=== PATIENT | female | born 1950 | race Caucasian/White ===

== ENCOUNTER 2020-02-08 20:10 | Emergency (ER) | payer MEDICARE, MEDICAID, SELFPAY ==
--- NOTE | ~2020-02-08 | CT_ITS ---
EXAMINATION: CT brain wo con DATE: 02/08/2020 20:49 INDICATION: Trauma to the back of the head after fall. Headache. TECHNIQUE: Computed tomography (CT) of the head was performed without intravenous contrast. The dose- length product was 605.33 mGy-cm. The mA was adjusted according to patient size. Iterative reconstruc tion technique was employed. COMPARISON: None FINDINGS: EXAMINATION: CT BRAIN W/O DATE: 02/08/2020 20:49 INDICATION: Trauma to the back of the head. Headache. TECHNIQUE: Computed tomography (CT) of the head was performed without intravenous contrast. The dose- length product was 605.33 mGy-cm. The mA was adjusted according to patient size. Iterative reconstruc tion technique was employed. COMPARISON: No prior studies for comparison. FINDINGS: Normal brain parenchymal volume for age. Normal alvarado-white differentiation. No acute intrac ranial hemorrhage, infarction, mass or mass effect. No ventriculomegaly or midline shift. Midline sagittal images demonstrate a normal corpus callosum, c raniovertebral junction and sella turcica. Basilar cisterns are patent. There is mucosal thickening of the ethmoid and sphenoid sinuses. Mastoids are pneumatized. No depress ed skull fractures. IMPRESSION: 1. No acute intracranial abnormality. 2: Mild sinus disease. IMPRESSION: 1. Reviewed, dictated and finalized at location A. IMPRESSION: 1. No acute intracranial abnormality. 2: Mild sinus disease. IMPRESSION: 1.
[2020-02-08 20:08] VITALS: BP 126/84; PULSE 89; RESP 18; TEMP 36.6; O2SAT 96
--- NOTE | 2020-02-08 20:43 | PC.NURSE ---
Patient being taken to CT.
--- NOTE | 2020-02-08 21:04 | ED.FALL ---
HPI - Fall General Chief Complaint: Fall Stated Complaint: fall/head injury Time Seen by Provider: 02/08/20 20:25 Source: patient Mode of arrival: EMS Limitations: no limitations History of Present Illness HPI Narrative: 69-year-old detention resident with a history of bipolar depression, anxiety, seizure disorder was sent with the complaints of fall. Patient states that she tripped on her walker and fell forward , had headache initially however she states has no pain, No Loc MD complaint: fall Fall from: standing Fall witnessed: yes, by living facility staff Place fall occurred: detention/SNF Loss of consciousness: none Related Data Home Medications Medication Instructions Recorded Confirmed acetaminophen 500 mg PO QID PRN 02/08/20 alprazolam 0.25 mg PO BID 02/08/20 aspirin [Aspirin Low Dose] 81 mg PO DAILY 02/08/20 clozapine 50 mg PO DAILY 02/08/20 docusate sodium 100 mg PO BID PRN 02/08/20 donepezil 10 mg PO HS 02/08/20 ergocalciferol (vitamin D2) 50,000 unit PO 2XW 02/08/20 [Vitamin D2] escitalopram oxalate 20 mg PO DAILY 02/08/20 fenofibrate 160 mg PO DAILY 02/08/20 glucagon HCl [Glucagon (HCl) 02/08/20 Emergency Kit] insulin glargine [Lantus Solostar 38 unit SUBCUT HS 02/08/20 U-100 Insulin] insulin lispro 10 unit SUBCUT TID 02/08/20 lamotrigine 200 mg PO DAILY 02/08/20 lithium carbonate 300 mg PO BID 02/08/20 meloxicam 7.5 mg PO DAILY 02/08/20 memantine 10 mg PO BID 02/08/20 pen needle, diabetic, safety 02/08/20 02/08/20 [Novofine Autocover] tramadol 50 mg PO Q6H PRN 02/08/20 trazodone 150 mg PO HS 02/08/20 Allergies Allergy/AdvReac Type Severity Reaction Status Date / Time haloperidol [From Haldol] Allergy Unknown Verified 02/08/20 20:16 Review of Systems Review of Systems: All systems reviewed & are unremarkable except as noted in HPI and below Constitutional: Constitutional: Reports no additional constitutional complaints Eyes: Eyes: Reports as per HPI Cardiovascular: Cardiovascular: Reports no additional cardiovascular complaints Respiratory: Respiratory: Reports no additional respiratory complaints Musculoskeletal: Musculoskeletal: Reports no additional musculoskeletal complaints Exam Narrative: Exam Narrative: GENERAL: Well-appearing, well-nourished, and in no acute distress. HEAD: Normocephalic, atraumatic. EYES: PERRLA and EOMI. ENT: Nares clear, no rhinorrhea or epistaxis. Mucous membranes moist. NECK: Supple. CHEST: Clear to auscultation. No respiratory distress. HEART: Regular rate and rhythm. No murmur heard. Normal peripheral pulses. ABDOMEN: Soft, nontender, nondistended, normal active bowel sounds. EXTREMITIES: Normal range of motion. No edema. SKIN: Warm, dry, no rash. NEURO: No focal deficits. Alert and oriented x3. PSYCH: Normal mood and affect. Course Vital Signs Vital signs: Vital Signs Temperature 36.6 C 02/08/20 20:08 Pulse Rate 89 02/08/20 20:08 Respiratory Rate 18 02/08/20 20:08 Blood Pressure 126/84 02/08/20 20:08 Pulse Oximetry 96 02/08/20 20:08 Temperature 36.6 C 02/08/20 20:08 Pulse Rate 89 02/08/20 20:08 Respiratory Rate 18 02/08/20 20:08 Blood Pressure 126/84 02/08/20 20:08 Pulse Oximetry 96 02/08/20 20:08 MDM - Fall MDM Narrative Medical decision making narrative: Given history of fall at the detention with no loss of consciousness with the age being under consideration and patient being on aspirin will do a CAT scan of the head. The CT of the head is normal discharge the patient home with headache still instructions. Imaging Data Radiologist's impression: ITS Impressions Head CT 02/08/20 20:55 IMPRESSION: 1. No acute intracranial abnormality. 2: Mild sinus disease. IMPRESSION: 1. Discharge Plan Discharge Clinical Impression: Minor head injury Patient Disposition: NH Longterm/Asst Living Condition: Stable Instructions: A
--- NOTE | 2020-02-08 21:08 | PC.NURSE ---
Called [facility] to request transport. ETA [id number]
[2020-02-08 21:40] VITALS: BP 119/69; PULSE 91; RESP 18; O2SAT 96
== END 2020-02-08 21:42 ==
PROVIDERS: Emergency Provider Family Medicine
DX: S09.90XA Unspecified injury of head, initial encounter (principal); F31.9 Bipolar disorder, unspecified; F41.9 Anxiety disorder, unspecified; Z79.4 Long term (current) use of insulin; Z79.82 Long term (current) use of aspirin; J32.9 Chronic sinusitis, unspecified; W18.09XA Striking against other object with subsequent fall, initial encounter
CPT/HCPCS: 70450; 99284

== ENCOUNTER 2021-02-02 18:23 | Emergency (ER) | payer MEDICARE, MEDICAID, SELFPAY ==
[2021-02-02] VITALS (9 sets, daily range): BP systolic 99–120; BP diastolic 54–92; PULSE 73–82; RESP 14–21; TEMP 36.7; O2SAT 88–99
--- NOTE | ~2021-02-02 | XR_ITS ---
XR chest 1V portable DATE: 02/02/2021 19:58 INDICATION: Transient alteration of awareness TECHNIQUE: Portable supine AP chest on 02/02/2021 at 1952 hours COMPARISON: None FINDINGS: Cardiomegaly. Aortic arch calcification. There is volume loss of the left lung with evidence of left lower lobe infiltrate and/atelectasis, mi ld leftward shift of the heart mediastinum. The right lung appears clear. No right pleural effusion. Left costophrenic angle is not well defined. No evidence of pneumothorax. Calcified hilar and mediastinal nodes consistent with old granulomatous disease. IMPRESSION: Left lower lung infiltrate and/atelectasis, left lung volume loss Cardiomegaly Reviewed, dictated and finalized at location A.
--- NOTE | ~2021-02-02 | CT_ITS ---
EXAMINATION: CT diagnostic chest wo con DATE: 02/02/2021 23:17 INDICATION: Hypoxia. Leftward shift of heart and mediastinum TECHNIQUE: Computed tomography (CT) of the chest was performed without intravenous contrast. Automate d exposure control and iterative reconstruction technique were employed. Exam dose: 202.19 mGy-cm to sam exam DLP. COMPARISON: 02/02/2021 portable AP chest FINDINGS: Thyroid goiter and calcification. No thoracic aortic aneurysm is evident. Cardiomegaly. No pericardial effusion. No pleural effusion. Calcified left lower lobe pulmonary granuloma and calcified right paratracheal, pretracheal and left hilar nodes consistent with old pulmonary granulomatous disease. No cardiac or mediastinal shift is evident; the appearance of rotation on the portable AP chest of is due to patient rotation. No pulmonary consolidation or pulmonary mass lesion is evident. There is minimal atelectasis. 3.5 cm upper pole right renal cyst. Included skeletal structures are unremarkable. IMPRESSION: Cardiomegaly Old pulmonary granulomatous disease Reviewed, dictated and finalized at Location A. Reviewed, dictated and finalized at location A.
[2021-02-02 18:33] LABS: Glucose Point of Care 282 mg/dl (65-105)
--- NOTE | 2021-02-02 19:30 | PC.NURSE ---
Assumed care of pt at this time, report taken from Abraham LAM. Pt upright on stretcher, oriented to person, time, and place. Pt 99% on 3L NC. Denies pain at this time.
--- NOTE | 2021-02-02 19:48 | ECG_ITS ---
Measurements Intervals [place] Rate: 72 P: 66 MA: 204 QRS: 116 QRSD: 113 T: -18 QT: 407 QTc: 447 Interpretive Statements SINUS RHYTHM RIGHT AXIS DEVIATION INCOMPLETE RIGHT BUNDLE BRANCH BLOCK ANTEROSEPTAL INFARCT, AGE INDETERMINATE BORDERLINE ST-T WAVE ABNORMALITY- ANTEROLAT/INF LEADS ABNORMAL ECG Electronically Signed On 02-02-2021 21:18:56 CDT by Noah Vital D.O.
--- NOTE | 2021-02-02 19:51 | ED.GENADULT ---
HPI - General Adult General Chief complaint: Altered Mental Status Stated complaint: ams Time Seen by Provider: 02/02/21 19:13 Source: EMS, RN notes reviewed and old records reviewed History of Present Illness HPI narrative: Patient presents with altered mental status from nursing facility. EMS noted a glucose of 40 they have dextrose on arrival patient's mental status returned to her baseline she was hypoxic and required nasal cannula. Patient does report pain in her suprapubic area. Related Data Home Medications Medication Instructions Recorded Confirmed acetaminophen 500 mg PO QID PRN 02/08/20 alprazolam 0.25 mg PO BID 02/08/20 aspirin [Aspirin Low Dose] 81 mg PO DAILY 02/08/20 clozapine 50 mg PO DAILY 02/08/20 docusate sodium 100 mg PO BID PRN 02/08/20 donepezil 10 mg PO HS 02/08/20 ergocalciferol (vitamin D2) 50,000 unit PO 2XW 02/08/20 [Vitamin D2] escitalopram oxalate 20 mg PO DAILY 02/08/20 fenofibrate 160 mg PO DAILY 02/08/20 glucagon HCl [Glucagon (HCl) 02/08/20 Emergency Kit] insulin glargine [Lantus Solostar 38 unit SUBCUT HS 02/08/20 U-100 Insulin] insulin lispro 10 unit SUBCUT TID 02/08/20 lamotrigine 200 mg PO DAILY 02/08/20 lithium carbonate 300 mg PO BID 02/08/20 meloxicam 7.5 mg PO DAILY 02/08/20 memantine 10 mg PO BID 02/08/20 pen needle, diabetic, safety 02/08/20 02/08/20 [Novofine Autocover] tramadol 50 mg PO Q6H PRN 02/08/20 trazodone 150 mg PO HS 02/08/20 Allergies Allergy/AdvReac Type Severity Reaction Status Date / Time haloperidol [From Haldol] Allergy Unknown Verified 02/08/20 20:16 Review of Systems Review of Systems: ROS unobtainable: Yes unobtainable due to mental status Exam Narrative: GENERAL: Disheveled in no acute distress. HEAD: Normocephalic, atraumatic. EYES: PERRLA and EOMI. ENT: Nares clear, no rhinorrhea or epistaxis. Mucous membranes moist. NECK: Supple. No masses. No JVD CHEST: Clear to auscultation. No respiratory distress. Slightly diminished in all lung field HEART: Regular rate and rhythm. No murmur heard. Normal peripheral pulses. ABDOMEN: Soft, nontender, nondistended, normal active bowel sounds. EXTREMITIES: Normal range of motion. No edema. SKIN: Warm, dry, no rash. NEURO: No focal deficits. Alert and oriented x3. PSYCH: Normal mood and affect. Course Reevaluation(s) Reevaluation #1: Patient resting comfortably continuous neb completed patient continued to have small oxygen requirement. We have discussed previously with the nursing facility patient already has oxygen as needed and has previously received breathing treatments at that facility. Nursing facility felt they could continue treatment as needed given longstanding history of COPD suspect hypoxia is related to COPD. All results and plan reviewed with family and they were comfortable with the outpatient plan. Date: 02/03/21 Time: 02:00 Vital Signs Vital signs: Vital Signs Temperature 36.7 C 02/02/21 18:30 Pulse Rate 74 02/02/21 18:30 Respiratory Rate 14 02/02/21 18:30 Blood Pressure 107/80 02/02/21 18:30 Pulse Oximetry 99 02/02/21 18:30 Temperature 36.7 C 02/02/21 18:30 Pulse Rate 95 02/03/21 02:01 Respiratory Rate 21 H 02/03/21 02:01 Blood Pressure 118/64 02/03/21 02:01 Pulse Oximetry 93 02/03/21 02:05 Medical Decision Making [facility] Narrative Medical decision making narrative: H&P as above, vs with hypoxia, pt looks clinically well, exam reassuring, labs initially with hypoglycemia but resolved, img without acute process, additional labs/img considered.family did present to the ER and reported patient appeared to be at her baseline mental status. Patient did have hypoxia while here in the ER. Patient is given DuoNeb therapies. She continued to have a 2 L oxygen requirement however she has a longstanding history of COPD and has a standing order for as needed oxygen at the nursing facility. Altered mental status was likely
[2021-02-02] MEDS: SODIUM CHLORIDE 0.9% IV 500 ML 999 ML IV CONT (20:22)
[2021-02-02 21:04] LABS: Basophils Absolute Auto 0.1 K/mm3 (0.0-0.1); Basophils Percent Auto 0.6 % (0.2-1.2); Eosinophils Absolute Auto 0.2 K/mm3 (0-0.3); Eosinophils Percent Auto 2.5 % (0-4.4); Hematocrit 42.4 % (37.0-47.0); Hemoglobin 13.1 g/dL (12.0-15.0); Immature Granulocyte Absolute 0.04 K/mm3 (0.00-0.031); Immature Granulocyte Percent A 0.5 % (0-0.5); Lymphocytes Absolute Auto 0.97 K/mm3 (0.9-3.2); Lymphocytes Percent Auto 12.3 % (18.3-44.2); Mean Corpuscular HGB Conc 30.9 g/dl (32-36); Mean Corpuscular Hemoglobin 31.9 pg (26-34); Mean Corpuscular Volume 103.2 fl (80-100); Mean Platelet Volume 10.9 fl (7.4-10.4); Monocytes Absolute Auto 0.6 K/mm3 (0.1-0.6); Monocytes Percent Auto 7.5 % (2.6-8.5); Neutrophils Absolute Auto 6.1 K/mm3 (1.3-6.7); Neutrophils Percent Auto 76.6 % (45.5-73.1); Platelet Count Result 269 k/mm3 (150-375); Red Blood Count 4.11 M/mm3 (4.2-5.4); Red Cell Distribution Width 13.1 % (11.5-14.5); White Blood Count 7.9 K/mm3 (4.5-10.0)
--- NOTE | 2021-02-02 21:11 | PC.NURSE ---
Daughter at bedside. Updated on POC.
[2021-02-02 21:14] LABS: Partial Thromboplastin Time 31.5 SECONDS (22.3-36.8); Prothrombin Time 12.7 Seconds (11.1-14.7)
[2021-02-02 21:20] LABS: Alanine Aminotransferase 21 U/L (4-35); Albumin Level 3.6 g/dL (3.5-5.1); Alkaline Phosphatase 46 U/L (38-126); Anion Gap 4 mmol/L (8-16); Aspartate Amino Transferase 33 U/L (14-36); Bilirubin,Total 0.4 mg/dL (0.2-1.3); Blood Urea Nitrogen 38 mg/dL (7-17); Calcium 9.5 mg/dL (8.4-10.2); Carbon Dioxide 29 mmol/L (22-30); Chloride 100 mmol/L (98-107); Estimated Glomerular Filt Rate 37; Glucose 68 mg/dL (65-110); Potassium 3.9 mmol/L (3.4-5.0); Sodium 133 mmol/L (137-145)
[2021-02-02 21:31] LABS: Troponin I < 0.012 ng/mL (0.000-0.034)
--- NOTE | 2021-02-02 21:40 | PC.NURSE ---
Received call from Rolanda romero [place]. Updated on pts POC. Will call back with further updates.
[2021-02-02 22:20] LABS: Add Urine Microscopic? NO; Appearance Urine Clear (Clear); Bilirubin Urine Negative (Negative); Blood Urine Negative (Negative); Color Urine Yellow (Yellow); Glucose Urine UA Negative (Negative); Ketones Urine Negative (Negative); Leukocyte Esterase Ur Negative LEU/UL (Negative); Nitrate Urine Negative (Negative); Protein Urine Negative (Negative); Specific Grav Ur 1.015 (1.001-1.035); Urobilinogen Urine 0.2 mg/dL (<2.0); pH Urine 6.5 (5.0-9.0)
[2021-02-02] MEDS: IPRATROPIUM BR 0.02% INH SOLN 0.5 MG/2.5 ML VIAL INHALATION (23:26)
[2021-02-02] MEDS: ALBUTEROL SULFATE NEB 2.5 MG/0.5 ML INH 5 MG INHALATION (23:26)
[2021-02-03 00:11] VITALS: BP 114/70; PULSE 86; RESP 17; O2SAT 92
[2021-02-03 00:16] LABS: Glucose Point of Care 255 mg/dl (65-105)
--- NOTE | 2021-02-03 00:18 | PC.NURSE ---
Attempted to call [facility] to give update. Received busy signal, will call back.
[2021-02-03] MEDS: ALBUTEROL SULFATE NEB 2.5 MG/0.5 ML INH 20 MG INHALATION (00:40)
[2021-02-03] MEDS: IPRATROPIUM BR 0.02% INH SOLN 0.5 MG/2.5 ML VIAL 2 MG INHALATION (00:40)
[2021-02-03 00:41] VITALS: PULSE 83; RESP 20
[2021-02-03] MEDS: methylPREDNISolone SOD SUCC 125 MG VIAL IV PUSH (01:03)
[2021-02-03 01:28] LABS: Troponin I < 0.012 ng/mL (0.000-0.034)
--- NOTE | 2021-02-03 01:40 | PC.NURSE ---
Spoke with Joss at [facility] to give update.
[2021-02-03 01:57] VITALS: PULSE 93; RESP 21
[2021-02-03 02:01] VITALS: BP 118/64; PULSE 95; RESP 21; O2SAT 92
[2021-02-03] MEDS: ACETAMINOPHEN 500 MG TABLET 1000 MG PO (02:01)
[2021-02-03 02:05] VITALS: O2SAT 93
== END 2021-02-03 02:43 ==
PROVIDERS: Emergency Provider Emergency Medicine
DX: J44.1 Chronic obstructive pulmonary disease with (acute) exacerbation (principal); E11.649 Type 2 diabetes mellitus with hypoglycemia without coma; F03.90 Unspecified dementia, unspecified severity, without behavioral disturbance, psychotic disturbance, mood disturbance, and anxiety; I25.10 Atherosclerotic heart disease of native coronary artery without angina pectoris; E78.00 Pure hypercholesterolemia, unspecified; K21.9 Gastro-esophageal reflux disease without esophagitis; F31.9 Bipolar disorder, unspecified; F41.9 Anxiety disorder, unspecified; Z79.4 Long term (current) use of insulin; I51.7 Cardiomegaly; R94.31 Abnormal electrocardiogram [ECG] [EKG]; I45.10 Unspecified right bundle-branch block
CPT/HCPCS: 36415; 51701; 71045; 71250; 80053; 81003; 82948; 84484; 85025; 85610; 85730; 93005; 94640; 96374; 99284; A9270; J2930; J7040

== ENCOUNTER 2021-09-29 09:01 | Inpatient (IN) | payer MEDICARE, MEDICAID, SELFPAY ==
[2021-09-29] VITALS (16 sets, daily range): BP systolic 87–125; BP diastolic 55–97; PULSE 76–86; RESP 13–20; TEMP 36.3–36.4; O2SAT 92–100; BMI 32.6
--- NOTE | ~2021-09-29 | XR_ITS ---
EXAMINATION: XR knee LT 3V DATE: 09/29/2021 10:21 INDICATION: Left knee pain. Fall. TECHNIQUE: 3 views of left knee were obtained. COMPARISON: None. FINDINGS: Bone alignment is normal. No fracture. There is mild osteoarthritis of medial and lateral c ompartments characterized by tiny osteophytes. No joint space narrowing. No knee joint effusion. IMPRESSION: 1. Mild left knee osteoarthritis. Reviewed, dictated and finalized at location B.
--- NOTE | ~2021-09-29 | CT_ITS ---
EXAMINATION: CT cervical spine wo con DATE: 09/29/2021 10:35 INDICATION: Syncopal episode with fall and possible head injury. TECHNIQUE: Computed tomography (CT) of the cervical spine was performed without intravenous contrast. Automated exposure control and iterative reconstruction technique were employed. The dose-length pro duct was 453.96 mGy-cm. COMPARISON: None FINDINGS: Mild reversal of the normal cervical lordosis. One half and 2 mm anterolisthesis is evident on T1. Ve rtebral body heights are normal. No fracture. Moderate disc height loss at C5-C6. Mild disc height lo ss at C6-C7. There is severe uncovertebral osteoarthritis the intervening to mild neural foraminal st enosis bilaterally at C5-C6 and on the right at C6-C7. Moderate cervical facet osteoarthritis contrib uting to additional mild neural foraminal stenosis on the left at C2-C3 and bilaterally at C7-T1. No significant narrowing of the osseous central canal. Multinodular goiter. Cervical soft tissues are ot herwise unremarkable. Visualized portion of the airway and apices of lungs are clear. IMPRESSION: 1. Mild to moderate cervical spondylosis. No acute osseous abnormality. 2. Multinodular goiter. Reviewed, dictated and finalized at location A.
--- NOTE | ~2021-09-29 | CT_ITS ---
EXAMINATION: CTA chest PE protocol DATE: 09/29/2021 12:57 INDICATION: Hypoxia. TECHNIQUE: Computed tomography angiography (CTA) of the chest was performed with 100 mL Omnipaque-350 intravenous contrast timed to evaluate the pulmonary arteries. Coronal maximum intensity projection 3D-reconstructions were created by the technologist. Automated exposure control and iterative reconst ruction technique were employed. The dose-length product was 674.70 mGy-cm. COMPARISON: Chest CT 02/02/2021 FINDINGS: The lungs demonstrate mild atelectasis bilaterally. No pleural effusion. Cardiomegaly is no arsh. No pericardial effusion. The central pulmonary arteries are enlarged, consistent with pulmonary arterial hypertension. There are pulmonary emboli in basilar right lower lobe and in right middle lob e. An embolus in right middle lobe is along the vessel wall, and an embolus in right lower lobe is we blike, which suggests at least some of the emboli could be chronic. There is a 3.7 cm mass in right a drenal gland measuring low-attenuation without change, consistent with an adenoma. There is a multino dular goiter extending into the superior mediastinum without change. There is mild thoracic spondylos is. IMPRESSION: 1. Pulmonary emboli involving right lower lobe and right middle lobe. I called this result to Dr. Wilver johns. Reviewed, dictated and finalized at location B. IMPRESSION: 1. Pulmonary emboli involving right lower lobe and right middle lobe. I called this result to Dr. Tracy.
--- NOTE | ~2021-09-29 | US_ITS ---
EXAMINATION: US carotid duplex BI DATE: 09/30/2021 13:51 INDICATION: Syncope. TECHNIQUE: Grayscale, color Doppler, and pulsed Doppler images of the cervical carotid arteries were obtained. The degree of vessel stenosis is placed in one of the following categories: normal, <50%, 5 0-69%, >=70% but less than near-occlusion, near-occlusion, or total occlusion. Note that percent sten osis relative to normal distal artery lumen diameter is indirectly measured from velocity measurement s as described by Edilson, et al. Radiology 2003; 229:[id number]. COMPARISON: None. FINDINGS: RIGHT: The right common carotid artery (CCA) peak systolic velocity (PSV) is 108 cm/s. The right internal ca rotid artery (ICA) PSV is 58 cm/s. The right ICA end-diastolic velocity (EDV) is 19 cm/s. The right I CA/CCA PSV ratio is 0.5. Grayscale and color Doppler images yield an estimate of <50% diameter reduct ion from plaque in the ICA. There is antegrade flow in the right vertebral artery. LEFT: The left CCA PSV is 88 cm/s. The left ICA PSV is 104 cm/s. The left ICA EDV is 21 cm/s. The left ICA/ CCA PSV ratio is 1.2. Grayscale and color Doppler images yield an estimate of <50% diameter reduction from plaque in the ICA. There is antegrade flow in the left vertebral artery. IMPRESSION: 1. <50% stenosis in the right internal carotid artery. 2. <50% stenosis in the left internal carotid artery. Reviewed, dictated and finalized at location B.
--- NOTE | ~2021-09-29 | CT_ITS ---
EXAMINATION: CT brain wo con DATE: 09/29/2021 10:35 INDICATION: Syncopal episode with fall presenting with persistent lethargy TECHNIQUE: Computed tomography (CT) of the head was performed without intravenous contrast. Sagittal and coronal reconstructions were performed. The mA was adjusted according to patient size. Iterative reconstruction technique was employed. The dose-length product was 605.33 mGy-cm. COMPARISON: head CT dated 02/08/2020 FINDINGS: No fracture. No acute intracranial hemorrhage, acute infarction or abnormal extra axial fluid collect ion. Symmetric prominence of the sulci consistent with mild age-appropriate diffuse cerebral volume l oss. Ventricles are normal and symmetric. No mass/mass effect. Mild mucosal thickening the bilateral ethmoid sinuses. The orbits and mastoid air cells are normal. IMPRESSION: 1. No fracture or acute intracranial process. Reviewed, dictated and finalized at location A.
--- NOTE | ~2021-09-29 | XR_ITS ---
EXAMINATION: XR chest 1V portable DATE: 09/29/2021 10:21 INDICATION: Shortness of breath. TECHNIQUE: A single frontal view of the chest was obtained. COMPARISON: Chest single view 02/02/2021, chest CT 02/02/2021 FINDINGS: There is no pneumonia, pleural effusion, or pneumothorax. Cardiomegaly is noted. There is a prominent left paracardial fat pad. Calcified mediastinal lymph nodes are consistent with old granul omatous disease. IMPRESSION: 1. Cardiomegaly. Reviewed, dictated and finalized at location B. IMPRESSION: 1. Cardiomegaly.
--- NOTE | ~2021-09-29 | US_ITS ---
EXAMINATION: US venous doppler [facility] DATE: 09/29/2021 16:15 INDICATION: Pulmonary emboli TECHNIQUE: Grayscale ultrasound images without and with compression and Doppler ultrasound images of the bilateral lower extremity veins were obtained. COMPARISON: None. FINDINGS: The visualized portions of right common femoral vein, profunda (deep) femoral vein, femoral vein, pop liteal vein, posterior tibial veins, peroneal veins, lesser saphenous vein and greater saphenous vein outflow are patent. The visualized portions of left common femoral vein, profunda femoral vein, femoral vein, popliteal v ein, posterior tibial veins, peroneal veins, lesser saphenous vein and greater saphenous vein outflow are patent. IMPRESSION: 1. No deep venous thrombosis in either lower limb. Reviewed, dictated and finalized at location A.
--- NOTE | 2021-09-29 09:14 | ECG_ITS ---
Measurements Intervals [place] Rate: 84 P: 66 MD: 207 QRS: 125 QRSD: 111 T: 0 QT: 391 QTc: 464 Interpretive Statements SINUS RHYTHM LEFT ATRIAL ENLARGEMENT [-0.15mV P-WAVE IN V1/V2] INCOMPLETE RIGHT BUNDLE BRANCH BLOCK [90+ ms QRS DURATION, TERMINAL R IN V1/V2, 40+ ms S IN I/aVL/V4/V5/V6] ANTEROSEPTAL MYOCARDIAL INFARCTION , OF INDETERMINATE AGE [40+ ms Q WAVE IN V1-V4] NONSPECIFIC ST ABNORMALITY ABNORMAL ECG COMPARED TO ECG 02/02/2021 20:20:58 NO SIGNIFICANT CHANGES YET Electronically Signed On 09-29-2021 16:52:38 CDT by Melquiades Mayer M.D.
[2021-09-29 09:18] LABS: Glucose Point of Care 386 mg/dl (65-105)
[2021-09-29 09:31] LABS: Basophils Percent Auto 0.6 % (0.2-1.2); Eosinophils Absolute Auto 0.1 K/mm3 (0-0.3); Eosinophils Percent Auto 2.4 % (0-4.4); Hematocrit 42.1 % (37.0-47.0); Hemoglobin 12.9 g/dL (12.0-15.0); Immature Granulocyte Absolute 0.01 K/mm3 (0.00-0.031); Immature Granulocyte Percent A 0.2 % (0-0.5); Lymphocytes Absolute Auto 0.62 K/mm3 (0.9-3.2); Lymphocytes Percent Auto 12.5 % (18.3-44.2); Mean Corpuscular HGB Conc 30.6 g/dl (32-36); Mean Corpuscular Hemoglobin 31.5 pg (26-34); Mean Corpuscular Volume 102.9 fl (80-100); Mean Platelet Volume 11.7 fl (7.4-10.4); Monocytes Absolute Auto 0.2 K/mm3 (0.1-0.6); Monocytes Percent Auto 4.8 % (2.6-8.5); Neutrophils Percent Auto 79.5 % (45.5-73.1); Platelet Count Result 214 k/mm3 (150-375); Red Blood Count 4.09 M/mm3 (4.2-5.4); Red Cell Distribution Width 14.3 % (11.5-14.5)
[2021-09-29 09:42] LABS: Alanine Aminotransferase 22 U/L (4-35); Albumin Level 3.8 g/dL (3.5-5.1); Alkaline Phosphatase 63 U/L (38-126); Anion Gap 7 mmol/L (8-16); Aspartate Amino Transferase 33 U/L (14-36); Bilirubin,Total 0.4 mg/dL (0.2-1.3); Blood Urea Nitrogen 38 mg/dL (7-17); Calcium 8.2 mg/dL (8.4-10.2); Carbon Dioxide 27 mmol/L (22-30); Chloride 102 mmol/L (98-107); Estimated CRCL calculation 39 ml/min; Estimated Glomerular Filt Rate 45; Glucose 405 mg/dL (65-110); Potassium 4.2 mmol/L (3.4-5.0); Sodium 136 mmol/L (137-145)
--- NOTE | 2021-09-29 10:22 | ED.GENADULT ---
HPI - General Adult General Chief complaint: Syncope Stated complaint: syncopal Time Seen by Provider: 09/29/21 09:23 Source: patient, EMS and RN notes reviewed Mode of arrival: EMS Limitations: altered mental status History of Present Illness HPI narrative: Patient is 70 years old white female came by ambulance from snf because of a fall and hypoxia. Patient finished her breakfast, walking down the [place] with her walker fell into the medical cart, and witnessed, the nurse ran to the patient who was cyanotic in the lips and hands responsive but lethargic and may be slightly confused. Patient normally not on oxygen, her saturation was 78% on room air. Patient normally have protruded tongue. History of COPD, seizure, Related Data Home Medications Medication Instructions Recorded Confirmed acetaminophen 500 mg PO QID PRN 02/08/20 alprazolam 0.25 mg PO BID 02/08/20 aspirin [Aspirin Low Dose] 81 mg PO DAILY 02/08/20 clozapine 50 mg PO DAILY 02/08/20 docusate sodium 100 mg PO BID PRN 02/08/20 donepezil 10 mg PO HS 02/08/20 ergocalciferol (vitamin D2) 50,000 unit PO 2XW 02/08/20 [Vitamin D2] escitalopram oxalate 20 mg PO DAILY 02/08/20 fenofibrate 160 mg PO DAILY 02/08/20 glucagon HCl [Glucagon (HCl) 02/08/20 Emergency Kit] insulin glargine [Lantus Solostar 38 unit SUBCUT HS 02/08/20 U-100 Insulin] insulin lispro 10 unit SUBCUT TID 02/08/20 lamotrigine 200 mg PO DAILY 02/08/20 lithium carbonate 300 mg PO BID 02/08/20 meloxicam 7.5 mg PO DAILY 02/08/20 memantine 10 mg PO BID 02/08/20 pen needle, diabetic, safety 02/08/20 02/08/20 [Novofine Autocover] tramadol 50 mg PO Q6H PRN 02/08/20 trazodone 150 mg PO HS 02/08/20 Allergies Allergy/AdvReac Type Severity Reaction Status Date / Time haloperidol [From Haldol] Allergy Unknown Verified 02/08/20 20:16 Review of Systems Review of Systems: ROS unobtainable: Yes unobtainable due to mental status Exam Narrative: General appearance: Well-developed, well-nourished, sleeping, tongue protruding out of the mouth to the right side, arousable Skin: Normal color Head: Normocephalic, nontraumatic Eyes: Clear conjunctiva ENT: Oropharynx normal, ears normal, nose normal Neck: Supple, nontender Chest and respiratory: Airway patent, no respiratory distress, no accessory muscle use Heart: Regular rate/rhythm Abdomen: Soft, nontender, no organomegaly, quiet bowel sounds Vascular: Normal peripheral pulses, normal capillary refill. Musculoskeletal: Normal range of motion, nontender back Neurologic: Alert and oriented to her name and the year only otherwise does not know her age or the name of the president. Keeps telling me that she cannot think Course Course Emergency Course: Work-up showed hypoxia, uncontrolled hyperglycemia. Seizure, CVA is suspected. Patient still oriented to her name and the year on the otherwise disoriented and cannot think which could be postictal or CVA. Normal D-dimer, CTA pulmonary showed peripheral pulmonary embolism which is high likely chronic. Vital Signs Vital signs: Vital Signs Temperature 36.4 C 09/29/21 08:52 Pulse Rate 83 09/29/21 08:52 Respiratory Rate 16 09/29/21 08:52 Blood Pressure 121/75 09/29/21 08:52 Pulse Oximetry 92 09/29/21 08:52 Temperature 36.4 C 09/29/21 08:52 Pulse Rate 76 09/29/21 13:17 Respiratory Rate 13 09/29/21 13:17 Blood Pressure 109/66 09/29/21 13:17 Pulse Oximetry 98 09/29/21 13:17 Medical Decision Making Differential Diagnosis Differential Diagnosis: Pulmonary embolism, head injury, COPD exacerbation, lithium overdose, orthostatic hypotension, Vital Signs Vital Signs:
[2021-09-29 10:26] LABS: Alveolar/Arterial O2 Gradient 172.2 mmHg; Base Excess ABG -1.5 mEq/l (+/-2.0); Fractional Inspired Oxygen 40 %; HCO3 ABG 24.2 mEq/l (22.0-26.0); Oxygen Content ABG 16.6 %vol (16.0-22.0); Oxygen Saturation ABG 90.7 % (95.0-100.0); PCO2 ABG 44.4 mmHg (35.0-45.0); PO2 ABG 61.9 mmHg (80.0-100.0); PO2 FiO2 Ratio Arterial Blood 1.55 %; Total Hemoglobin 13.1 g/dL (12.0-18.0); pH ABG 7.354 (7.350-7.450)
[2021-09-29 10:27] LABS: Device NASAL CANNULA; Modified Allen's Test Pass; Site Drawn RIGHT RADIAL
[2021-09-29 11:17] LABS: Lithium 0.8 mmol/L (0.6-1.2)
[2021-09-29] MEDS: ALBUTEROL SULFATE NEB 2.5 MG/0.5 ML INH 5 MG INHALATION ×3 (11:41→20:44)
[2021-09-29] MEDS: IPRATROPIUM BR 0.02% INH SOLN 0.5 MG/2.5 ML VIAL INHALATION ×3 (11:41→20:44)
[2021-09-29] MEDS: SODIUM CHLORIDE 0.9% IV 1,000 ML 999 ML IV CONT (12:43)
[2021-09-29] MEDS: ENOXAPARIN 80 MG/0.8 ML SYRINGE SUB-Q (13:19)
[2021-09-29 13:34] LABS: Troponin I 0.013 ng/mL (0.000-0.034)
--- NOTE | 2021-09-29 13:45 | PM.IMHP ---
H&P: HPI History of Present Illness Date/Time: 09/29/21 13:45 Chief Complaint: Syncope. Narrative: This is a 70-year-old female with insulin-dependent diabetes, bipolar disorder, schizoaffective disorder, COPD, and asthma who presented to the emergency department via EMS from [facility] for evaluation after a witnessed syncopal episode. After eating lunch, she stood up from the table and took a few steps at which time she lost consciousness, falling into the nurses cart. She was out for only a brief period of time and was perhaps a bit confused when coming to and initially she did not recall experiencing antecedent symptoms however at the time my evaluation she remembers feeling very weak. The responding nurse noted cyanosis about her finger and lips and she was found to have an SpO2 of 78% on room air and she was brought to the ER on 5 L nasal cannula. Vital signs were otherwise stable on arrival. CT of the head and neck as well as a left knee x-ray (patient reported mild knee pain after the fall) were negative for acute findings. Chest CTA showed enlarged pulmonary arteries consistent with pulmonary arterial hypertension and pulmonary emboli in the basilar right lower lobe and right middle lobe, with the embolism in the right middle lobe giving the appearance that it could be chronic. She is being admitted in this setting for further observation and workup. Currently she is resting comfortably and has no complaints. She is not on chronic oxygen and is on no inhalers though she endorses chronic dyspnea with exertion. She denies sinus congestion, sore throat, and cough. No chest pain, pleuritic pain, or palpitations. No known sick contacts. Review of Systems Review of Systems: Twelve systems were reviewed. No fever, chills, or sweats. No recent change in medication that she can recall. No recent illness. No sick contacts. She denies lower extremity edema. It does not sound as though she is very active and in fact she tells me that her children but her a wheelchair for her 71th birthday tomorrow. I asked her why she had issues with walking and she did not have a really good answer for that but it sounds like she is unsteady on her feet. She denies that is related to neuropathy. She believes her diabetes is fairly well controlled however it is not unusual for her to have a glucose around 200 on occasion. Except as documented, all other systems were reviewed and are negative. [facility] Past Medical History Medical History (Updated 09/29/21 @ 22:52 by Lynn Jovel PA-C) Anxiety Bipolar disorder Chronic kidney disease, stage 3 Chronic obstructive pulmonary disease Dementia Depression Gastroesophageal reflux disease Insulin dependent diabetes mellitus Multinodular goiter Stable on imaging from 09/28/2021. Right adrenal mass 3.7 cm mass, stable on imaging in 09/2021. Schizoaffective disorder Seizures Surgical History Surgical History (Updated 09/29/21 @ 22:44 by Lynn Jovel PA-C) History of dilation and curettage Family History Family History (Updated 09/29/21 @ 15:17 by Jania Rosario RN) Grandparent Diabetes mellitus Father Hypertension Mother Bladder cancer Social History Social History (Updated 09/29/21 @ 22:45 by Lynn Jovel PA-C) Social History: Surrogate decision maker: Rose Mary Sebastian, daughter. Code status: Do not resuscitate. Smoking packs per day: 2 Smoking cigarettes per day: 40.0 Years smoked: 46 Smoking pack-years: 92.00 Smoking status: Former smoker Tobacco type: cigarettes Second hand tobacco smoke exposure: Yes Alcohol intake: former Substance use: never Living arrangements: [facility] Additional living arrangements comments: [facility]. Additional occupation/education comments: Disabled. Spiritual care concerns: No Meds Home Medications and Allergies Home Medications Medication Instructions Recorded Confirmed Type a
[2021-09-29 14:35] LABS: Troponin I 0.014 ng/mL (0.000-0.034)
[2021-09-29 15:21] LABS: NT Pro B Type Natriuretic Pept 4650 pg/mL (5-100)
[2021-09-29 16:19] LABS: Folic Acid 18.7 ng/mL (2.76->20)
--- NOTE | 2021-09-29 16:23 | ADMGEN ---
This patient, Keila Cowart, was admitted to [facility] Surg Room 323-01 at 1420.. Patient/family oriented to hospital policies and general routines including ID bracelet, bed and alarms, visiting hours, pain management, procedures, bathroom and other care routines, personal items, smoking policy, room service/diet, and visiting hours. Information on how to activate the Rapid Response Team has been discussed. Patient/Family are encouraged to report perceived risks to care and to ask questions if they do not understand what they are told or what they should do.
--- NOTE | 2021-09-29 16:24 | PC.NURSE ---
Patient stated she had never had an MRI on the MRI screening form. Whenever they came to transport her to MRI she refused to go and stated she had had an MRI before and would never have one again. The hospitalist Lynn was notified and she will plan to come speak with the patient about the issue.
[2021-09-29 16:34] LABS: Hemoglobin A1C 9.1 % (<5.7)
[2021-09-29 16:45] LABS: Glucose Point of Care 226 mg/dl (65-105)
[2021-09-29] MEDS: INSULIN ASPART (*BKC) 100 UNITS/ML SUB-Q ×2 (16:55→23:31)
[2021-09-29 17:29] LABS: Troponin I < 0.012 ng/mL (0.000-0.034)
[2021-09-29 18:29] LABS: Thyroid Stimulating Hormone Reflex 0.535 uIU/mL (0.465-4.68)
[2021-09-29] MEDS: ENOXAPARIN 80 MG/0.8 ML SYRINGE 75 MG SUB-Q (21:09)
[2021-09-29 22:16] LABS: Glucose Point of Care 303 mg/dl (65-105)
[2021-09-29] MEDS: INSULIN GLARGINE (*BKC) 100 UNITS/ML 30 UNITS SUB-Q (23:31)
[2021-09-29] MEDS: ALPRAZolam (*CRX) 0.25 MG TABLET PO (23:31)
[2021-09-29] MEDS: DOCUSATE SODIUM 100 MG CAPSULE PO (23:31)
[2021-09-30] VITALS (23 sets, daily range): BP systolic 72–138; BP diastolic 41–89; PULSE 74–89; RESP 18–20; TEMP 36.1–36.7; O2SAT 87–98
[2021-09-30] MEDS: IPRATROPIUM BR 0.02% INH SOLN 0.5 MG/2.5 ML VIAL INHALATION ×4 (02:27→20:23)
[2021-09-30] MEDS: ALBUTEROL SULFATE NEB 2.5 MG/0.5 ML INH 5 MG INHALATION ×4 (02:27→20:23)
[2021-09-30 06:36] LABS: Hemoglobin 12.3 g/dL (12.0-15.0); Mean Corpuscular HGB Conc 31.5 g/dl (32-36); Mean Corpuscular Hemoglobin 31.9 pg (26-34); Mean Corpuscular Volume 101.3 fl (80-100); Mean Platelet Volume 10.8 fl (7.4-10.4); Platelet Count Result 195 k/mm3 (150-375); Red Blood Count 3.85 M/mm3 (4.2-5.4); Red Cell Distribution Width 14.5 % (11.5-14.5); White Blood Count 5.3 K/mm3 (4.5-10.0)
[2021-09-30 06:46] LABS: Alanine Aminotransferase 21 U/L (4-35); Albumin Level 3.9 g/dL (3.5-5.1); Alkaline Phosphatase 42 U/L (38-126); Anion Gap 6 mmol/L (8-16); Aspartate Amino Transferase 35 U/L (14-36); Bilirubin,Total 0.6 mg/dL (0.2-1.3); Blood Urea Nitrogen 28 mg/dL (7-17); Calcium 8.9 mg/dL (8.4-10.2); Carbon Dioxide 27 mmol/L (22-30); Chloride 108 mmol/L (98-107); Estimated Glomerular Filt Rate 44; Glucose 108 mg/dL (65-110); Magnesium 2.3 mg/dL (1.6-2.3); Potassium 4.2 mmol/L (3.4-5.0); Sodium 141 mmol/L (137-145)
[2021-09-30 07:28] LABS: Glucose Point of Care 110 mg/dl (65-105)
[2021-09-30] MEDS: calcium polycarbophiL 625 MG TABLET 1250 MG PO (08:19)
[2021-09-30] MEDS: ENOXAPARIN 80 MG/0.8 ML SYRINGE 75 MG SUB-Q ×2 (08:19→20:56)
[2021-09-30] MEDS: ASPIRIN 81 MG ENTERIC TABLET PO (08:19)
[2021-09-30] MEDS: MEMANTINE 10 MG TABLET PO ×2 (08:19→20:59)
[2021-09-30] MEDS: polyethylene glycoL 3350 17 GM POWD.PACK PO (08:19)
[2021-09-30] MEDS: MELOXICAM 7.5 MG TABLET PO (08:20)
[2021-09-30] MEDS: LITHIUM CARBONATE 150 MG CAPSULE PO ×2 (08:20→20:59)
[2021-09-30] MEDS: ESCITALOPRAM OXALATE 10 MG TABLET 30 MG PO (08:20)
[2021-09-30] MEDS: lamoTRIgine 100 MG TABLET 200 MG PO (08:20)
[2021-09-30] MEDS: DOCUSATE SODIUM 100 MG CAPSULE PO ×2 (08:20→20:57)
[2021-09-30] MEDS: FENOFIBRATE 160 MG TABLET PO (08:20)
[2021-09-30] MEDS: ALPRAZolam (*CRX) 0.25 MG TABLET PO ×2 (08:20→20:57)
[2021-09-30] MEDS: ASPIRIN 81 MG CHEWABLE TABLET PO (08:20)
[2021-09-30] MEDS: lamoTRIgine 50 MG TABLET PO (08:21)
--- NOTE | 2021-09-30 09:59 | PC.NURSE ---
call placed to [facility] for pts medication due to pharmacy here not having medication. facility stated they will bring pts medication to [place].
--- NOTE | 2021-09-30 10:38 | WPDNEURCNPN ---
Assessment and Plan Additional Plan 1 syncope likely secondary to pulmonary embolism and orthostatic hypertension which could be on the basis of autonomic dysfunction to underlying diabetes mellitus 2 rule out the cardiac source 3 neuro at this stage is nonfocal Consult date: 09/30/21 HPI: Keila Cowart is a 71 year old female admitted to [facility] through the emergency room where she came by ambulance from assisted because of fall and hypoxia reportedly she finished her breakfast, walked down the [place] with her walker and fell into the medical card, patient was noted least cyanotic as per the nurse and also lethargic and somewhat confused, pulse ox was 78% on room air , patient has been taking multiple medications particularly alprazolam 0.25 twice a day aspirin 81 mg daily clozapine 50 mg daily donepezil 10 mg at night Flybtq23 mg daily lithium 300 b.i.d. lamotrigine 200 daily memantine 10 mg twice a day trazodone 150 at night and insulin 38units subcu at night. On initial evaluation afebrile, normotensive, hyperglycemic on BMP, left knee osteoarthritis on x-rays of the knee but no fracture, cardiomegaly on chest x-ray, mild to moderate cervical spondylosis but no acute fracture incidental finding of multi nodular goiter, CT of the brain negative for bleed, chest CTA pulmonary emboli involving right lower lobe and right middle lobe, negative DVT on ultrasound, initial ABGs with PO2 61.9 Review of Systems Review of Systems: All systems reviewed & are unremarkable except as noted in HPI and below PMFSH Past Medical History Medical History Anxiety Bipolar disorder Chronic kidney disease, stage 3 Chronic obstructive pulmonary disease Dementia Depression Gastroesophageal reflux disease Insulin dependent diabetes mellitus Multinodular goiter Stable on imaging from 09/28/2021. Right adrenal mass 3.7 cm mass, stable on imaging in 09/2021. Schizoaffective disorder Seizures Surgical History Surgical History History of dilation and curettage Family History Family History Grandparent Diabetes mellitus Father Hypertension Mother Bladder cancer Social History Social History Social History: Surrogate decision maker: Rose Mary Sebastian, daughter. Code status: Do not resuscitate. Smoking packs per day: 2 Smoking cigarettes per day: 40.0 Years smoked: 46 Smoking pack-years: 92.00 Smoking status: Former smoker Tobacco type: cigarettes Second hand tobacco smoke exposure: Yes Alcohol intake: former Substance use: never Living arrangements: assisted Additional living arrangements comments: [facility]. Additional occupation/education comments: Disabled. Spiritual care concerns: No Meds Home Medications and Allergies Home Medications Medication Instructions Recorded Confirmed Type acetaminophen 500 mg PO Q4H PRN 02/08/20 09/29/21 History alprazolam 0.25 mg PO Q12H 02/08/20 09/29/21 History aspirin [Aspirin Low Dose] 81 mg PO DAILY 02/08/20 09/29/21 History clozapine 50 mg PO DAILY 02/08/20 09/29/21 History docusate sodium 100 mg PO Q12H 02/08/20 09/29/21 History donepezil 10 mg PO HS 02/08/20 09/29/21 History ergocalciferol (vitamin D2) 50,000 unit PO 2XW 02/08/20 09/29/21 History [Vitamin D2] escitalopram oxalate 30 mg PO DAILY 02/08/20 09/29/21 History fenofibrate 160 mg PO DAILY 02/08/20 09/29/21 History glucagon HCl [Glucagon (HCl) 1 mg SUBCUT PRN PRN 02/08/20 09/29/21 History Emergency Kit] insulin glargine [Lantus Solostar 30 unit SUBCUT HS 02/08/20 09/29/21 History U-100 Insulin] lamotrigine 200 mg PO DAILY 02/08/20 09/29/21 History meloxicam 7.5 mg PO DAILY 02/08/20 09/29/21 History memantine 10 mg PO Q12H 02/08/20 09/29/21 History pen needle, diabetic,
--- NOTE | 2021-09-30 11:19 | PHAR ---
home meds verifed clozapine 50mg 1 tablet daily and clozapine 200mg tablet take 2 hs
[2021-09-30 11:30] LABS: Glucose Point of Care 211 mg/dl (65-105)
[2021-09-30] MEDS: INSULIN ASPART (*BKC) 100 UNITS/ML SUB-Q (11:30)
--- NOTE | 2021-09-30 14:16 | ECHO_ITS ---
Patient Info Name: Keila Cowart Age: 71 years : 1950 Gender: Female Ht: 62 in Wt: 174 lbs BSA: 1.89 m2 HR: 85 bpm BP: 109 / 66 mmHg Technical Quality: Good Exam Date: 09/30/2021 10:02 AM Exam Location: [facility] Pulmonary Exam Room: 323 Patient Status: Inpatient Admit Date: 09/30/2021 Staff Ordering Physician: Lynn Jovel PA-C Reference And Instruction Librarian: Mere Washington RDCS Attending Provider: Carleen Davenport M.A., MD Referring Physician: Becka THOMAS; Exam Type: CA echo doppler w bubble study Study Info Indications - syncope pe pulm htn Complete two-dimensional, color flow and Doppler transthoracic echocardiogram is performed with agitated saline. Contrast/Agitated Saline Contrast/Ag. Saline: Agitated Saline Amount: 20.00 ml Existing IV Access: Yes Summary 1. Left ventricular chamber dimension is normal. 2. D-shape interventricular septum during systole suggests pressure overload of right ventricle. 3. Left ventricular systolic function is normal, estimated at 65-70%. 4. The left ventricular diastolic function is grade I diastolic dysfunction. 5. E/e' 10 is mildly elevated. 6. Right ventricular systolic function is severely reduced and abnormal TAPSE 1.5 cm. 7. Right ventricular chamber dimension is severely enlarged. 8. Right atrial chamber dimension is severely enlarged. 9. There is mild aortic valve sclerosis. 10. There is moderate to severe tricuspid valve regurgitation. 11. Severe pulmonary hypertension, estimated pulmonary arterial systolic pressure is 85 mmHg. 12. There is trace pulmonic regurgitation. 13. There is trivial pericardial effusion. Left Ventricle E/e' 10 is mildly elevated. D-shape interventricular septum during systole suggests pressure overload of right ventricle. Left ventricular chamber dimension is normal. Left ventricular systolic function is normal, estimated at 65-70%. The left ventricular diastolic function is grade I diastolic dysfunction. Right Ventricle Right ventricular systolic function is severely reduced and abnormal TAPSE 1.5 cm. Moderator band in right ventricle noted is normal variant. Right ventricular chamber dimension is severely enlarged. Left Atria Left atrial chamber dimension is normal. Right Atria Right atrial chamber dimension is severely enlarged. Atrial Septum Agitated saline injection with and without valsalva maneuver opacified right cardiac chambers without shunt to left cardiac chambers. Intact interatrial septum visualized by 2D and agitated saline imaging. Aortic Valve The aortic valve is trileaflet. There is mild aortic valve sclerosis. There is no aortic valve stenosis. There is no aortic valve regurgitation. Pulmonic Valve There is trace pulmonic regurgitation. Mitral Valve There is no mitral valve stenosis. There is no mitral valve regurgitation. Tricuspid Valve There is moderate to severe tricuspid valve regurgitation. Severe pulmonary hypertension, estimated pulmonary arterial systolic pressure is 85 mmHg. Pericardium/Pleural There is trivial pericardial effusion. Inferior Vena Cava Normal inferior vena cava with >50% collapse upon inspiration consistent with normal right atrial pressure, 5 mmHg. Aorta The aortic root size at the sinus of Valsalva is normal. Left Ventricular Outflow Tract Name
[2021-09-30 15:57] LABS: Glucose Point of Care 151 mg/dl (65-105)
[2021-09-30] MEDS: ACETAMINOPHEN 500 MG TABLET PO (18:09)
--- NOTE | 2021-09-30 18:25 | PM.IMPN ---
Progress Note: A&P Assessment and Plan (1) Syncope: Code(s): R55 - Syncope and collapse Status: Acute Assessment and Plan: May be related to pulmonary embolism, hypoxia, orthostatic hypotension (patient reports feeling weak almost immediately after standing up following lunch) versus other. Monitor on telemetry overnight to rule out cardiac dysrhythmia. Echocardiogram and carotid Doppler ultrasounds ordered for a.m.. Monitor orthostatic vital signs Q shift. Initiate fall precautions. 09/30/2021 interval history patient is 71-year-old female presented with syncopal episode is found to have pulmonary emboli seen by neurologist and suspect most likely secondary to PE patient is being anticoagulated with Lovenox, patient's CT of the head and carotid ultrasound a normal, to further evaluate patient had cardiac echo patient has a left ventricular ejection fraction close to normal and left ventricular diastolic dysfunction grade 1, however patient has a severe reduced right ventricular systolic function, and severely enlarged right atrial suggesting patient has a chronic pulmonary emboli, patient also has severe tricuspid wall regurgitation. will continue to monitor and further recommendation to follow. (2) Pulmonary emboli: Code(s): I26.99 - Other pulmonary embolism without acute cor pulmonale Status: Acute Assessment and Plan: She has been started on Lovenox 1 milligram/kilogram b.i.d.. Lower extremity venous Dopplers ordered to evaluate for possible DVT. (3) Hypoxia: Code(s): R09.02 - Hypoxemia Status: Acute Assessment and Plan: Related to above though imaging shows findings consistent with pulmonary arterial hypertension. Wean as tolerated. Will need a home O2 study prior to discharge. (4) Chronic kidney disease, stage 3: Code(s): N18.30 - Chronic kidney disease, stage 3 unspecified Status: Acute Assessment and Plan: Stable on review of previous labs. (5) Insulin dependent diabetes mellitus: Status: Acute Assessment and Plan: Continue basal insulin. Initiate sliding scale insulin, Accu-Cheks, and hypoglycemic protocol. (6) Multinodular goiter: Code(s): E04.2 - Nontoxic multinodular goiter Status: Acute Assessment and Plan: Stable on imaging today. No reported issues according to patient. TSH normal. Subjective Date/time seen: 09/30/21 18:25 Chief Complaint: Syncope. Narrative: This is a 70-year-old female with insulin-dependent diabetes, bipolar disorder, schizoaffective disorder, COPD, and asthma who presented to the emergency department via EMS from [facility] for evaluation after a witnessed syncopal episode. After eating lunch, she stood up from the table and took a few steps at which time she lost consciousness, falling into the nurses cart. She was out for only a brief period of time and was perhaps a bit confused when coming to and initially she did not recall experiencing antecedent symptoms however at the time my evaluation she remembers feeling very weak. The responding nurse noted cyanosis about her finger and lips and she was found to have an SpO2 of 78% on room air and she was brought to the ER on 5 L nasal cannula. Vital signs were otherwise stable on arrival. CT of the head and neck as well as a left knee x-ray (patient reported mild knee pain after the fall) were negative for acute findings. Chest CTA showed enlarged pulmonary arteries consistent with pulmonary arterial hypertension and pulmonary emboli in the basilar right lower lobe and right middle lobe, with the embolism in the right middle lobe giving the appearance that it could be chronic. She is being admitted in this setting for further observation and workup. Currently she is resting comfortably and has no complaints. She is not on chronic oxygen and is on no inhalers though she endorses chronic dyspnea with exertion. She denies sinus conge
[2021-09-30] MEDS: DONEPEZIL HCL 10 MG TABLET PO (20:57)
[2021-09-30] MEDS: HYDROcodone/acetaminophen (*CRX) 5-325 MG TABLET 1 TAB PO (20:59)
[2021-09-30] MEDS: traZODone HCL 50 MG TABLET 150 MG PO (21:00)
[2021-09-30 21:47] LABS: Glucose Point of Care 154 mg/dl (65-105)
[2021-09-30] MEDS: INSULIN GLARGINE (*BKC) 100 UNITS/ML 30 UNITS SUB-Q (22:52)
[2021-10-01] VITALS (21 sets, daily range): BP systolic 64–129; BP diastolic 38–106; PULSE 79–91; RESP 18–22; TEMP 36.2–37.2; O2SAT 93–100
[2021-10-01] MEDS: IPRATROPIUM BR 0.02% INH SOLN 0.5 MG/2.5 ML VIAL INHALATION ×4 (01:43→20:55)
[2021-10-01] MEDS: ALBUTEROL SULFATE NEB 2.5 MG/0.5 ML INH 5 MG INHALATION ×4 (01:44→20:55)
[2021-10-01 07:25] LABS: Glucose Point of Care 93 mg/dl (65-105)
[2021-10-01] MEDS: ALPRAZolam (*CRX) 0.25 MG TABLET PO ×2 (08:25→20:34)
[2021-10-01] MEDS: LITHIUM CARBONATE 150 MG CAPSULE PO ×2 (08:25→20:34)
[2021-10-01] MEDS: ESCITALOPRAM OXALATE 10 MG TABLET 30 MG PO (08:25)
[2021-10-01] MEDS: lamoTRIgine 100 MG TABLET 200 MG PO (08:26)
[2021-10-01] MEDS: MELOXICAM 7.5 MG TABLET PO (08:26)
[2021-10-01] MEDS: MEMANTINE 10 MG TABLET PO ×2 (08:26→20:34)
[2021-10-01] MEDS: ASPIRIN 81 MG ENTERIC TABLET PO (08:26)
[2021-10-01] MEDS: FENOFIBRATE 160 MG TABLET PO (08:26)
[2021-10-01] MEDS: ENOXAPARIN 80 MG/0.8 ML SYRINGE 75 MG SUB-Q ×2 (08:26→20:33)
[2021-10-01] MEDS: DOCUSATE SODIUM 100 MG CAPSULE PO ×2 (08:26→20:34)
[2021-10-01] MEDS: calcium polycarbophiL 625 MG TABLET 1250 MG PO (08:26)
[2021-10-01] MEDS: lamoTRIgine 50 MG TABLET PO (08:27)
[2021-10-01 11:31] LABS: Glucose Point of Care 61 mg/dl (65-105)
[2021-10-01 11:58] LABS: Glucose Point of Care 76 mg/dl (65-105)
--- NOTE | 2021-10-01 14:26 | PM.IMPN ---
Progress Note: A&P Assessment and Plan (1) Syncope: Code(s): R55 - Syncope and collapse Status: Acute Assessment and Plan: May be related to pulmonary embolism, hypoxia, orthostatic hypotension (patient reports feeling weak almost immediately after standing up following lunch) versus other. Monitor on telemetry overnight to rule out cardiac dysrhythmia. Echocardiogram and carotid Doppler ultrasounds ordered for a.m.. Monitor orthostatic vital signs Q shift. Initiate fall precautions. 09/30/2021 interval history patient is 71-year-old female presented with syncopal episode is found to have pulmonary emboli seen by neurologist and suspect most likely secondary to PE patient is being anticoagulated with Lovenox, patient's CT of the head and carotid ultrasound a normal, to further evaluate patient had cardiac echo patient has a left ventricular ejection fraction close to normal and left ventricular diastolic dysfunction grade 1, however patient has a severe reduced right ventricular systolic function, and severely enlarged right atrial suggesting patient has a chronic pulmonary emboli, patient also has severe tricuspid wall regurgitation. will continue to monitor and further recommendation to follow. 10/01/2021 interval history patient is 71-year-old female presented with syncopal episode is found to have pulmonary emboli seen by neurologist and suspect most likely secondary to PE patient is being anticoagulated with Lovenox, patient's CT of the head and carotid ultrasound a normal, to further evaluate patient had cardiac echo patient has a left ventricular ejection fraction close to normal and left ventricular diastolic dysfunction grade 1, however patient has a severe reduced right ventricular systolic function, and severely enlarged right atrial suggesting patient has a chronic pulmonary emboli, patient also has severe tricuspid valve regurgitation, Today patient daughter Rose Mary is present in and had a long discussion patient is to be seen by [facility] [employer] for possible surgical correction of her severe tricuspid wall regurgitation, patient also needs to be seen by associate juvenile court judge for pulmonary hypertension, patient remains clinically stable will continue present management. will start the patient Eliquis, will have a PT OT evaluate the patient, will continue to monitor and further recommendation to follow. (2) Pulmonary emboli: Code(s): I26.99 - Other pulmonary embolism without acute cor pulmonale Status: Acute Assessment and Plan: She has been started on Lovenox 1 milligram/kilogram b.i.d.. Lower extremity venous Dopplers ordered to evaluate for possible DVT. (3) Hypoxia: Code(s): R09.02 - Hypoxemia Status: Acute Assessment and Plan: Related to above though imaging shows findings consistent with pulmonary arterial hypertension. Wean as tolerated. Will need a home O2 study prior to discharge. (4) Chronic kidney disease, stage 3: Code(s): N18.30 - Chronic kidney disease, stage 3 unspecified Status: Acute Assessment and Plan: Stable on review of previous labs. (5) Insulin dependent diabetes mellitus: Status: Acute Assessment and Plan: Continue basal insulin. Initiate sliding scale insulin, Accu-Cheks, and hypoglycemic protocol. (6) Multinodular goiter: Code(s): E04.2 - Nontoxic multinodular goiter Status: Acute Assessment and Plan: Stable on imaging today. No reported issues according to patient. TSH normal. Subjective Date/time seen: 10/01/21 14:26 09/30/2021 interval history patient is 71-year-old female presented with syncopal episode is found to have pulmonary emboli seen by neurologist and suspect most likely secondary to PE patient is being anticoagulated with Lovenox, patient's CT of the head and carotid ultrasound a normal, to further evaluate patient had cardiac echo patient has a left ventricular ejection fra
[2021-10-01 16:13] LABS: Glucose Point of Care 101 mg/dl (65-105)
[2021-10-01] MEDS: INSULIN GLARGINE (*BKC) 100 UNITS/ML 30 UNITS SUB-Q (20:33)
[2021-10-01] MEDS: DONEPEZIL HCL 10 MG TABLET PO (20:34)
[2021-10-01] MEDS: HYDROcodone/acetaminophen (*CRX) 5-325 MG TABLET 1 TAB PO (20:34)
[2021-10-01] MEDS: traZODone HCL 50 MG TABLET 150 MG PO (20:34)
[2021-10-02] VITALS (22 sets, daily range): BP systolic 56–125; BP diastolic 29–74; PULSE 74–93; RESP 18–20; TEMP 35.9–37.1; O2SAT 93–100
[2021-10-02 00:55] LABS: Glucose Point of Care 90 mg/dl (65-105)
[2021-10-02] MEDS: ALBUTEROL SULFATE NEB 2.5 MG/0.5 ML INH 5 MG INHALATION ×4 (02:45→20:59)
[2021-10-02] MEDS: IPRATROPIUM BR 0.02% INH SOLN 0.5 MG/2.5 ML VIAL INHALATION ×4 (02:45→20:59)
[2021-10-02 08:04] LABS: Glucose Point of Care 45 mg/dl (65-105)
[2021-10-02] MEDS: ALPRAZolam (*CRX) 0.25 MG TABLET PO ×2 (08:21→20:12)
[2021-10-02] MEDS: GLUCOSE ORAL GEL 15 GM OF GLUCSE IN 37.5 GM TUBE PO (08:22)
[2021-10-02] MEDS: ASPIRIN 81 MG ENTERIC TABLET PO (08:22)
[2021-10-02] MEDS: FENOFIBRATE 160 MG TABLET PO (08:22)
[2021-10-02] MEDS: lamoTRIgine 100 MG TABLET 200 MG PO (08:22)
[2021-10-02] MEDS: LITHIUM CARBONATE 150 MG CAPSULE PO ×2 (08:22→20:05)
[2021-10-02] MEDS: ENOXAPARIN 80 MG/0.8 ML SYRINGE 75 MG SUB-Q (08:22)
[2021-10-02] MEDS: calcium polycarbophiL 625 MG TABLET 1250 MG PO (08:22)
[2021-10-02] MEDS: ESCITALOPRAM OXALATE 10 MG TABLET 30 MG PO (08:22)
[2021-10-02] MEDS: DOCUSATE SODIUM 100 MG CAPSULE PO ×2 (08:22→20:05)
[2021-10-02] MEDS: MEMANTINE 10 MG TABLET PO ×2 (08:23→20:05)
[2021-10-02] MEDS: lamoTRIgine 50 MG TABLET PO (08:23)
[2021-10-02] MEDS: MELOXICAM 7.5 MG TABLET PO (08:23)
[2021-10-02 08:37] LABS: Glucose Point of Care 147 mg/dl (65-105)
[2021-10-02 09:08] LABS: Hematocrit 38.9 % (37.0-47.0); Hemoglobin 12.2 g/dL (12.0-15.0); Mean Corpuscular HGB Conc 31.4 g/dl (32-36); Mean Corpuscular Volume 102.1 fl (80-100); Mean Platelet Volume 11.5 fl (7.4-10.4); Platelet Count Result 195 k/mm3 (150-375); Red Blood Count 3.81 M/mm3 (4.2-5.4); Red Cell Distribution Width 14.4 % (11.5-14.5)
[2021-10-02 09:18] LABS: Anion Gap 8 mmol/L (8-16); Blood Urea Nitrogen 29 mg/dL (7-17); Calcium 9.1 mg/dL (8.4-10.2); Carbon Dioxide 23 mmol/L (22-30); Chloride 108 mmol/L (98-107); Estimated Glomerular Filt Rate 40; Glucose 197 mg/dL (65-110); Magnesium 2.3 mg/dL (1.6-2.3); Potassium 4.2 mmol/L (3.4-5.0); Sodium 139 mmol/L (137-145)
[2021-10-02 11:39] LABS: Glucose Point of Care 194 mg/dl (65-105)
--- NOTE | 2021-10-02 14:03 | PM.IMPN ---
Progress Note: A&P Assessment and Plan (1) Syncope: Code(s): R55 - Syncope and collapse Status: Acute Assessment and Plan: May be related to pulmonary embolism, hypoxia, orthostatic hypotension (patient reports feeling weak almost immediately after standing up following lunch) versus other. Monitor on telemetry overnight to rule out cardiac dysrhythmia. Echocardiogram and carotid Doppler ultrasounds ordered for a.m.. Monitor orthostatic vital signs Q shift. Initiate fall precautions. 09/30/2021 interval history patient is 71-year-old female presented with syncopal episode is found to have pulmonary emboli seen by neurologist and suspect most likely secondary to PE patient is being anticoagulated with Lovenox, patient's CT of the head and carotid ultrasound a normal, to further evaluate patient had cardiac echo patient has a left ventricular ejection fraction close to normal and left ventricular diastolic dysfunction grade 1, however patient has a severe reduced right ventricular systolic function, and severely enlarged right atrial suggesting patient has a chronic pulmonary emboli, patient also has severe tricuspid wall regurgitation. will continue to monitor and further recommendation to follow. 10/01/2021 interval history patient is 71-year-old female presented with syncopal episode is found to have pulmonary emboli seen by neurologist and suspect most likely secondary to PE patient is being anticoagulated with Lovenox, patient's CT of the head and carotid ultrasound a normal, to further evaluate patient had cardiac echo patient has a left ventricular ejection fraction close to normal and left ventricular diastolic dysfunction grade 1, however patient has a severe reduced right ventricular systolic function, and severely enlarged right atrial suggesting patient has a chronic pulmonary emboli, patient also has severe tricuspid valve regurgitation, Today patient daughter Rose Mary is present in and had a long discussion patient is to be seen by Industrial Service Technician for possible surgical correction of her severe tricuspid wall regurgitation, patient also needs to be seen by software support technician for pulmonary hypertension, patient remains clinically stable will continue present management. will start the patient Eliquis, will have a PT OT evaluate the patient, will continue to monitor and further recommendation to follow. 10/02/2021 interval history patient is 71-year-old female presented with syncopal episode is found to have pulmonary emboli seen by neurologist and suspect most likely secondary to PE patient is being anticoagulated with Lovenox, today will stop the Lovenox and start the patient on Eliquis, patient's CT of the head and carotid ultrasound a normal, to further evaluate patient had cardiac echo patient has a left ventricular ejection fraction close to normal and left ventricular diastolic dysfunction grade 1, however patient has a severe reduced right ventricular systolic function, and severely enlarged right atrial suggesting patient has a chronic pulmonary emboli, patient also has severe tricuspid valve regurgitation, on 10/01 patient daughter Rose Mary was present in the room and had a long discussion patient is to be seen by Industrial Service Technician for possible surgical correction of her severe tricuspid wall regurgitation, patient also needs to be seen by software support technician for pulmonary hypertension, patient remains clinically stable will continue present management. will start the patient Eliquis, will have a PT OT evaluate the patient, will continue to monitor and further recommendation to follow. (2) Pulmonary emboli: Code(s): I26.99 - Other pulmonary embolism without acute cor pulmonale Status: Acute Assessment and Plan: She has been started on Lovenox 1 milligram/kilogram b.i.d.. Lower extremity venous Dopplers ordered to evaluate for possible DVT. (3) Hypoxia: Code(s): R09.02 - Hypoxemia Status: Acute Assessme
[2021-10-02 16:57] LABS: Glucose Point of Care 156 mg/dl (65-105)
[2021-10-02] MEDS: polyethylene glycoL 3350 17 GM POWD.PACK PO (20:05)
[2021-10-02] MEDS: APIXABAN 5 MG TABLET 10 MG PO (20:05)
[2021-10-02] MEDS: traZODone HCL 50 MG TABLET 150 MG PO (20:05)
[2021-10-02] MEDS: DONEPEZIL HCL 10 MG TABLET PO (20:05)
[2021-10-02] MEDS: HYDROcodone/acetaminophen (*CRX) 5-325 MG TABLET 1 TAB PO (20:12)
[2021-10-02] MEDS: INSULIN GLARGINE (*BKC) 100 UNITS/ML 30 UNITS SUB-Q (20:13)
[2021-10-02 20:14] LABS: Glucose Point of Care 144 mg/dl (65-105)
[2021-10-03] VITALS (9 sets, daily range): BP systolic 102; BP diastolic 60; PULSE 79–91; RESP 18–20; TEMP 36.4; O2SAT 90–94
[2021-10-03] MEDS: ALBUTEROL SULFATE NEB 2.5 MG/0.5 ML INH 5 MG INHALATION ×2 (02:30→08:55)
[2021-10-03] MEDS: IPRATROPIUM BR 0.02% INH SOLN 0.5 MG/2.5 ML VIAL INHALATION ×2 (02:30→08:55)
[2021-10-03 06:47] LABS: Hematocrit 38.8 % (37.0-47.0); Hemoglobin 11.9 g/dL (12.0-15.0); Mean Corpuscular HGB Conc 30.7 g/dl (32-36); Mean Corpuscular Hemoglobin 31.3 pg (26-34); Mean Corpuscular Volume 102.1 fl (80-100); Mean Platelet Volume 11.4 fl (7.4-10.4); Platelet Count Result 189 k/mm3 (150-375); Red Cell Distribution Width 14.3 % (11.5-14.5); White Blood Count 4.7 K/mm3 (4.5-10.0)
[2021-10-03 07:22] LABS: Anion Gap 4 mmol/L (8-16); Blood Urea Nitrogen 30 mg/dL (7-17); Calcium 8.8 mg/dL (8.4-10.2); Carbon Dioxide 26 mmol/L (22-30); Chloride 109 mmol/L (98-107); Estimated Glomerular Filt Rate 44; Glucose 44 mg/dL (65-110); Potassium 4.2 mmol/L (3.4-5.0); Sodium 139 mmol/L (137-145)
[2021-10-03 07:41] LABS: Glucose Point of Care 62 mg/dl (65-105)
[2021-10-03] MEDS: ALPRAZolam (*CRX) 0.25 MG TABLET PO (08:35)
[2021-10-03] MEDS: ACETAMINOPHEN 500 MG TABLET PO (08:35)
[2021-10-03] MEDS: calcium polycarbophiL 625 MG TABLET 1250 MG PO (08:35)
[2021-10-03] MEDS: ASPIRIN 81 MG ENTERIC TABLET PO (08:35)
[2021-10-03] MEDS: MELOXICAM 7.5 MG TABLET PO (08:36)
[2021-10-03] MEDS: DOCUSATE SODIUM 100 MG CAPSULE PO (08:36)
[2021-10-03] MEDS: ESCITALOPRAM OXALATE 10 MG TABLET 30 MG PO (08:36)
[2021-10-03] MEDS: APIXABAN 5 MG TABLET 10 MG PO (08:36)
[2021-10-03] MEDS: lamoTRIgine 100 MG TABLET 200 MG PO (08:36)
[2021-10-03] MEDS: LITHIUM CARBONATE 150 MG CAPSULE PO (08:37)
[2021-10-03] MEDS: MEMANTINE 10 MG TABLET PO (08:37)
[2021-10-03] MEDS: FENOFIBRATE 160 MG TABLET PO (08:37)
[2021-10-03] MEDS: polyethylene glycoL 3350 17 GM POWD.PACK PO (08:37)
[2021-10-03 09:07] LABS: Glucose Point of Care 103 mg/dl (65-105)
--- NOTE | 2021-10-03 11:16 | PM.DS ---
DS: Admitting Diagnosis Discharge Date 10/03/2021 Admitting Diagnosis Syncope DS: Discharge Diagnosis Discharge Diagnosis (1) Syncope: Code(s): R55 - Syncope and collapse Status: Acute Assessment and Plan: May be related to pulmonary embolism, hypoxia, orthostatic hypotension (patient reports feeling weak almost immediately after standing up following lunch) versus other. Monitor on telemetry overnight to rule out cardiac dysrhythmia. Echocardiogram and carotid Doppler ultrasounds ordered for a.m.. Monitor orthostatic vital signs Q shift. Initiate fall precautions. 09/30/2021 interval history patient is 71-year-old female presented with syncopal episode is found to have pulmonary emboli seen by neurologist and suspect most likely secondary to PE patient is being anticoagulated with Lovenox, patient's CT of the head and carotid ultrasound a normal, to further evaluate patient had cardiac echo patient has a left ventricular ejection fraction close to normal and left ventricular diastolic dysfunction grade 1, however patient has a severe reduced right ventricular systolic function, and severely enlarged right atrial suggesting patient has a chronic pulmonary emboli, patient also has severe tricuspid wall regurgitation. will continue to monitor and further recommendation to follow. 10/01/2021 interval history patient is 71-year-old female presented with syncopal episode is found to have pulmonary emboli seen by neurologist and suspect most likely secondary to PE patient is being anticoagulated with Lovenox, patient's CT of the head and carotid ultrasound a normal, to further evaluate patient had cardiac echo patient has a left ventricular ejection fraction close to normal and left ventricular diastolic dysfunction grade 1, however patient has a severe reduced right ventricular systolic function, and severely enlarged right atrial suggesting patient has a chronic pulmonary emboli, patient also has severe tricuspid valve regurgitation, Today patient daughter Rose Mary is present in and had a long discussion patient is to be seen by Interior Horticulturist for possible surgical correction of her severe tricuspid wall regurgitation, patient also needs to be seen by postal service window clerk for pulmonary hypertension, patient remains clinically stable will continue present management. will start the patient Eliquis, will have a PT OT evaluate the patient, will continue to monitor and further recommendation to follow. 10/02/2021 interval history patient is 71-year-old female presented with syncopal episode is found to have pulmonary emboli seen by neurologist and suspect most likely secondary to PE patient is being anticoagulated with Lovenox, today will stop the Lovenox and start the patient on Eliquis, patient's CT of the head and carotid ultrasound a normal, to further evaluate patient had cardiac echo patient has a left ventricular ejection fraction close to normal and left ventricular diastolic dysfunction grade 1, however patient has a severe reduced right ventricular systolic function, and severely enlarged right atrial suggesting patient has a chronic pulmonary emboli, patient also has severe tricuspid valve regurgitation, on 10/01 patient daughter Rose Mary was present in the room and had a long discussion patient is to be seen by Interior Horticulturist for possible surgical correction of her severe tricuspid wall regurgitation, patient also needs to be seen by postal service window clerk for pulmonary hypertension, patient remains clinically stable will continue present management. will start the patient Eliquis, will have a PT OT evaluate the patient, will continue to monitor and further recommendation to follow. (2) Pulmonary emboli: Code(s): I26.99 - Other pulmonary embolism without acute cor pulmonale Status: Acute Assessment and Plan: She has been started on Lovenox 1 milligram/kilogram b.i.d.. Lower extremity venous Dopplers ordered to evaluate for possible DVT.
[2021-10-03 11:45] LABS: Glucose Point of Care 106 mg/dl (65-105)
[2021-10-03 12:04] LABS: EDCOVIDSCREEN Negative (Negative)
[2021-10-03] MEDS: lamoTRIgine 50 MG TABLET PO (12:20)
== END 2021-10-03 13:35 | DRG 175 ==
LOC: ANHED 13:42 → ANH3MEDSUR 14:00
PROVIDERS: Physician Assistant; Admitting Provider Internal Medicine; Emergency Provider Emergency Medicine; PCP Internal Medicine; Visit Provider Family Medicine
DX: I26.99 Other pulmonary embolism without acute cor pulmonale (principal); J96.21 Acute and chronic respiratory failure with hypoxia; I95.1 Orthostatic hypotension; I27.20 Pulmonary hypertension, unspecified; E11.22 Type 2 diabetes mellitus with diabetic chronic kidney disease; N18.30 Chronic kidney disease, stage 3 unspecified; E11.65 Type 2 diabetes mellitus with hyperglycemia; E04.2 Nontoxic multinodular goiter; Z20.822 Contact with and (suspected) exposure to COVID-19; R29.705 NIHSS score 5; F25.9 Schizoaffective disorder, unspecified; J44.9 Chronic obstructive pulmonary disease, unspecified; W19.XXXA Unspecified fall, initial encounter; F31.9 Bipolar disorder, unspecified; F41.9 Anxiety disorder, unspecified; I07.1 Rheumatic tricuspid insufficiency; F03.90 Unspecified dementia, unspecified severity, without behavioral disturbance, psychotic disturbance, mood disturbance, and anxiety; K21.9 Gastro-esophageal reflux disease without esophagitis; Z87.891 Personal history of nicotine dependence; Z79.82 Long term (current) use of aspirin; Z79.4 Long term (current) use of insulin
CPT/HCPCS: 36415; 36600; 70450; 71045; 71275; 72125; 73562; 80048; 80053; 80178; 82607; 82746; 82805; 82948; 83036; 83735; 83880; 84443; 84484; 85025; 85027; 85380; 87426; 93005; 93306; 93880; 93970; 94640; 96360; 96372; 96375; 99285; A9270; C9803; G0378; J1650; J1815; J7030; Q9967

== ENCOUNTER 2022-02-03 13:25 | Emergency (ER) | payer MEDICARE, MEDICAID, SELFPAY ==
--- NOTE | ~2022-02-03 | CT_ITS ---
EXAMINATION: CT brain wo con INDICATION: Head injury COMPARISON: 09/29/2021 TECHNIQUE: Standard unenhanced head CT. The dose-length product (DLP) was 605.33 mGy-cm. The mA was a djusted according to patient size. Iterative reconstruction technique was employed. FINDINGS: There is no acute intraparenchymal hemorrhage. No evidence of mass lesion. No evidence of a cute infarction. There is mild periventricular and subcortical hypodensity probably related to small vessel ischemic disease. There is mild prominence of the sulci and ventricles related to cerebral atr ophy. Intracranial calcified cerebral atherosclerosis is noted. There are no extra-axial collections. There is no mass effect or midline shift. The orbits and soft tissues are unremarkable. The visualiz ed sinuses and mastoid air cells are well aerated. IMPRESSION: 1. No acute intracranial abnormality. 2. Age related findings. Reviewed, dictated and finalized at location [facility].
[2022-02-03 13:52] VITALS: PULSE 89; RESP 20; TEMP 36.4; O2SAT 95
[2022-02-03 17:01] VITALS: BP 127/86; PULSE 88; RESP 16; O2SAT 96
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
[2022-02-03 18:17] VITALS: BP 127/82; PULSE 86; RESP 20; O2SAT 98
[2022-02-03 18:31] VITALS: BP 140/91; PULSE 86; RESP 20; O2SAT 95
--- NOTE | 2022-02-03 19:51 | PC.NURSE ---
[facility] here at [address]
[2022-02-03 19:55] VITALS: BP 130/86; PULSE 87; RESP 23; O2SAT 93
== END 2022-02-03 19:55 ==
PROVIDERS: Emergency Provider Emergency Medicine; PCP Internal Medicine
DX: S09.90XA Unspecified injury of head, initial encounter (principal); E11.22 Type 2 diabetes mellitus with diabetic chronic kidney disease; N18.30 Chronic kidney disease, stage 3 unspecified; F03.90 Unspecified dementia, unspecified severity, without behavioral disturbance, psychotic disturbance, mood disturbance, and anxiety; K21.9 Gastro-esophageal reflux disease without esophagitis; E04.2 Nontoxic multinodular goiter; F41.9 Anxiety disorder, unspecified; F31.9 Bipolar disorder, unspecified; F25.9 Schizoaffective disorder, unspecified; Z79.4 Long term (current) use of insulin; Z66 Do not resuscitate; W05.0XXA Fall from non-moving wheelchair, initial encounter
CPT/HCPCS: 70450; 99284

== ENCOUNTER 2023-04-13 11:44 | Inpatient (IN) | payer MEDICARE, MEDICAID, SELFPAY ==
[2023-04-13] VITALS (13 sets, daily range): BP systolic 101–125; BP diastolic 60–88; PULSE 84–96; RESP 12–20; TEMP 36.6–36.7; O2SAT 92–100; BMI 36.2
--- NOTE | ~2023-04-13 | CT_ITS ---
EXAMINATION: CT brain wo con DATE: 04/13/2023 13:49 INDICATION: Confusion. Lethargy, weakness TECHNIQUE: Computed tomography (CT) of the head was performed without intravenous contrast. The mA wa s adjusted according to patient size. Iterative reconstruction technique was employed. Exam dose: 60 5.33 mGy-cm total exam DLP. COMPARISON: 02/03/2022 CT Brain. FINDINGS: There are prominent bilateral vertebral artery calcifications in addition to bilateral davison tid siphon internal carotid artery calcifications. There is nonspecific diminished attenuation of the cerebral white matter, likely due to chronic small vessel ischemic changes. No intracranial mass lesion or hemorrhage or cerebrovascular accidents, midline shift or mass effect. No subdural or epidural hematoma. Mild left frontal, prominent bilateral ethmoid and maxillary and moderate bilateral sphenoid soft ti ssue thickening. Partial right mastoid air cell effusions. IMPRESSION: Cerebral atherosclerosis and chronic ischemic changes of the cerebral white matter No acute intracranial finding Prominent paranasal sinus disease Reviewed, dictated and finalized at Location [facility]. Reviewed, dictated and finalized at location B. IMPRESSION: Cerebral atherosclerosis and chronic ischemic changes of the cereb ral white matter No acute intracranial finding Prominent paranasal sinus disease
--- NOTE | ~2023-04-13 | CT_ITS ---
EXAMINATION: CTA chest PE protocol DATE: 04/13/2023 15:50 INDICATION: Hypoxia TECHNIQUE: Computed tomography (CT) pulmonary angiogram of the chest was performed with 100 mL Omnipa que-350 intravenous contrast. Additional 3D reconstructions utilizing coronal maximum intensity proje ction (MIP) were performed. Automated exposure control and iterative reconstruction technique were em ployed. The dose-length product was 649.23 mGy-cm. COMPARISON: 09/29/2021 FINDINGS: Excellent contrast opacification of the pulmonary arteries. There is mild respiratory motion artifact which does not significantly limit evaluation. There is enlargement of the central pulmonary arterie s consistent with pulmonary arterial hypertension but no filling defects to suggest pulmonary emboli. Similar pattern of atelectasis at the anterior and posterior left lower lobe. Minimal dependent atel ectasis in the posterior right lower lobe. No pneumonia, pulmonary edema or pleural effusion. Cardiom egaly with right atrial and ventricular enlargement. No pericardial effusion. Thoracic aorta is dario l in caliber with no dissection. Calcified mediastinal lymph nodes consistent with old granulomatous disease. Multinodular goiter with at least 4 cm nodules in the right thyroid lobe which extends minim al distance into the superior mediastinum. No pathologically enlarged thoracic lymphadenopathy. No si gnificant change in a 3.8 cm low-attenuation right adrenal adenoma. Mild S-shaped curvature of the th oracic spine with mild spondylosis. IMPRESSION: 1. No pulmonary embolism. 2. Cardiomegaly with right atrial and ventricular enlargement and enlargement of the central pulmonar y arteries consistent with pulmonary arterial hypertension. 3. Multinodular goiter. Reviewed, dictated and finalized at location A. IMPRESSION: 1. No pulmonary embolism. 2. Cardiomegaly with right atrial and ventricular enlargement and enlargement o f the central pulmonary arteries consistent with pulmonary arterial hypertensio n. 3. Multinodular goiter.
--- NOTE | ~2023-04-13 | XR_ITS ---
EXAMINATION: XR chest 1V portable DATE: 04/13/2023 12:56 INDICATION: Weakness and lethargy. TECHNIQUE: A single frontal view of the chest was obtained. COMPARISON: Chest single view 09/29/2021 FINDINGS: There is mild atelectasis in left mid and lower lung zones. Calcified mediastinal lymph nod es are consistent with old granulomatous disease. Cardiomegaly is noted. There is a prominent left pa racardial fat pad. IMPRESSION: 1. Mild atelectasis in left mid and lower lung zones. 2. Cardiomegaly. Reviewed, dictated and finalized at location E.
--- NOTE | 2023-04-13 11:56 | ECG_ITS ---
Measurements Intervals [place] Rate: 90 P: 67 WV: 190 QRS: 115 QRSD: 110 T: -2 QT: 348 QTc: 426 Interpretive Statements SINUS RHYTHM RIGHT AXIS DEVIATION INCOMPLETE RIGHT BUNDLE BRANCH BLOCK ANTEROSEPTAL INFARCT, AGE INDETERMINATE BORDERLINE ST-T WAVE ABNORMALITY- ANTEROLAT/INF LEADS BASELINE WANDER- II, III, AVF, V2, V5-V6 ABNORMAL ECG COMPARED TO ECG 09/29/2021 09:09:09 NO SIGNIFICANT CHANGES Electronically Signed On 04-13-2023 12:31:35 CDT by Noah Vital D.O.
--- NOTE | 2023-04-13 12:39 | ED.WEAKNESS ---
HPI - Weakness General Chief complaint: Weakness Stated complaint: lethargic, low O2 Time Seen by Provider: 04/13/23 12:39 Source: patient and EMS Mode of arrival: EMS Limitations: no limitations History of Present Illness HPI Narrative: After [facility] the [facility] who is telling me that patient have shortness of breath, generally weak and oxygen saturation was in the 80s before transfer to the emergency room. She is telling me that patient on Xanax every morning and trazodone nightly. She denies that the patient have access to any medicine out of her last. Patient baseline is awake, alert oriented x4, uses wheelchair for transportation only. And she is DNR. Daughter at the bedside who have seen the patient last 1 week ago and is telling me that patient looks exactly the same as much as 1 week ago but confused. Which is new Related Data Home Medications Medication Instructions Recorded Confirmed acetaminophen 500 mg tablet 500 mg PO Q4H PRN Pain 02/08/20 11/17/21 alprazolam 0.25 mg tablet 0.25 mg PO Q12H 02/08/20 11/17/21 docusate sodium 100 mg capsule 100 mg PO Q12H 02/08/20 11/17/21 donepezil 10 mg tablet 10 mg PO HS 02/08/20 11/17/21 ergocalciferol (vitamin D2) 1,250 50,000 unit PO 2XW 02/08/20 11/17/21 mcg (50,000 unit) capsule (Vitamin D2) escitalopram oxalate 10 mg tablet 30 mg PO DAILY 02/08/20 11/17/21 fenofibrate 160 mg tablet 160 mg PO DAILY 02/08/20 11/17/21 glucagon HCl 1 mg solution for 1 mg subcut PRN PRN Hypoglycemia 02/08/20 11/17/21 injection (Glucagon (HCl) Emergency Kit) insulin glargine 100 unit/mL (3 30 unit subcut HS 02/08/20 11/17/21 mL) subcutaneous pen (Lantus Solostar U-100 Insulin) lamotrigine 200 mg tablet 200 mg PO DAILY 02/08/20 11/17/21 meloxicam 7.5 mg tablet 7.5 mg PO DAILY 02/08/20 11/17/21 memantine 10 mg tablet 10 mg PO Q12H 02/08/20 11/17/21 pen needle, diabetic, safety 30 02/08/20 11/17/21 gauge x 1/3 (Novofine Autocover) trazodone 150 mg tablet 150 mg PO HS 02/08/20 11/17/21 calcium polycarbophil 625 mg 1,250 mg PO DAILY 09/29/21 11/17/21 tablet (FiberCon) clozapine 200 mg tablet 400 mg PO HS 09/29/21 11/17/21 hydrocodone 5 mg-acetaminophen 325 1 tablet PO HS 09/29/21 11/17/21 mg tablet lamotrigine 25 mg tablet 50 mg PO DAILY 09/29/21 11/17/21 lithium carbonate 150 mg capsule 150 mg PO Q12H 09/29/21 11/17/21 polyethylene glycol 3350 17 17 g PO Q12H 09/29/21 09/29/21 gram/dose oral powder (Miralax) sodium phosphates 19 gram-7 118 ml RECTAL DAILY PRN 09/29/21 11/17/21 gram/118 mL enema (Fleet Enema) Constipation Allergies Allergy/AdvReac Type Severity Reaction Status Date / Time haloperidol [From Haldol] Allergy Unknown Verified 04/13/23 11:58 Review of Systems Review of Systems: All systems reviewed & are unremarkable except as noted in HPI and below PMFSH Past Medical History Medical History Anxiety Bipolar disorder Chronic kidney disease, stage 3 Chronic obstructive pulmonary disease Dementia Depression Gastroesophageal reflux disease Insulin dependent diabetes mellitus Multinodular goiter Stable on imaging from 09/28/2021. Right adrenal mass 3.7 cm mass, stable on imaging in 09/2021. Schizoaffective disorder Seizures Surgical History Surgical History History of dilation and curettage Family History Family History Grandparent Diabetes mellitus Father Hypertension Mother Bladder cancer Social History Social History Social History: Surrogate decision maker: Rose Mary Sebastian, daughter. Code status: Do not resuscitate. Smoking packs per day: 2 Smoking cigarettes per day: 40.0 Years smoked: 46 Smoking pack-years: 92.00 Smoking status: Former smoker Tobacco type: cigarettes Second hand tobac
[2023-04-13 13:00] LABS: Alanine Aminotransferase 21 U/L (6-35); Albumin Level 4.3 g/dL (3.5-5.1); Alkaline Phosphatase 65 U/L (38-126); Anion Gap 5 mmol/L (8-16); Aspartate Amino Transferase 26 U/L (14-36); Bilirubin,Total 0.5 mg/dL (0.2-1.3); Blood Urea Nitrogen 22 mg/dL (7-17); Calcium 9.6 mg/dL (8.4-10.2); Carbon Dioxide 30 mmol/L (22-30); Chloride 105 mmol/L (98-107); Estimated Glomerular Filt Rate > 60; Glucose 167 mg/dL (65-110); Potassium 4.7 mmol/L (3.4-5.0); Sodium 140 mmol/L (137-145)
[2023-04-13] MEDS: SODIUM CHLORIDE 0.9% IV 1,000 ML 999 ML IV CONT (13:09)
[2023-04-13 13:22] LABS: Base Excess ABG 1.2 mEq/l (+/-2.0); Fractional Inspired Oxygen 28 %; HCO3 ABG 27.7 mEq/l (22.0-26.0); Oxygen Content ABG 16.7 %vol (16.0-22.0); Oxygen Saturation ABG 90.1 % (95.0-100.0); Oxyhemoglobin 89.9 % THb (90.0-100.0); PCO2 ABG 51.7 mmHg (35.0-45.0); PO2 ABG 61.6 mmHg (80.0-100.0); Total Hemoglobin 13.2 g/dL (12.0-18.0); pH ABG 7.347 (7.350-7.450)
[2023-04-13 13:23] LABS: Device NASAL CANNULA; Site Drawn RIGHT BRACHIAL
[2023-04-13 13:45] LABS: Hematocrit 45.4 % (37.0-47.0); Mean Corpuscular HGB Conc 30.8 g/dl (32-36); Mean Corpuscular Hemoglobin 31.7 pg (26-34); Mean Corpuscular Volume 102.9 fl (80-100); Mean Platelet Volume 10.5 fl (7.4-10.4); Platelet Count Result 241 k/mm3 (150-375); Red Blood Count 4.41 M/mm3 (4.2-5.4); Red Cell Distribution Width 12.2 % (11.5-14.5)
[2023-04-13 13:46] LABS: Eosinophils Percent Auto 0.9 % (0-4.4); Lymphocytes Percent Auto 10.4 % (18.3-44.2); Monocytes Percent Auto 5.7 % (2.6-8.5); Neutrophils Percent Auto 81.7 % (45.5-73.1)
[2023-04-13 13:47] LABS: Basophils Absolute Auto 0.1 K/mm3 (0.0-0.1); Basophils Percent Auto 0.7 % (0.2-1.2); Eosinophils Absolute Auto 0.1 K/mm3 (0-0.3); Immature Granulocyte Absolute 0.04 K/mm3 (0.00-0.031); Immature Granulocyte Percent A 0.6 % (0-0.5); Lymphocytes Absolute Auto 0.73 K/mm3 (0.9-3.2); Monocytes Absolute Auto 0.4 K/mm3 (0.1-0.6); Neutrophils Absolute Auto 5.7 K/mm3 (1.3-6.7)
[2023-04-13 14:32] LABS: Acetaminophen < 10 ug/mL (10-30); Ammonia < 9 umol/L (9-30); Ethanol < 10 mg/dL (<10); Salicylate < 1.0 mg/dL (2-20)
[2023-04-13 14:33] LABS: INR 1.1
[2023-04-13 14:38] LABS: Appearance Urine Clear (Clear); Bacteria Urine None Seen /hpf; Bilirubin Urine Negative (Negative); Blood Urine Negative (Negative); Color Urine Yellow (Yellow); Glucose Urine UA Negative (Negative); Ketones Urine Negative (Negative); Leukocyte Esterase Ur Negative LEU/UL (Negative); Nitrate Urine Negative (Negative); Non Pathogenic Casts 0-2; Protein Urine Trace mg/dL (Negative); RBC Urine 0-2 /hpf (0-2); Specific Grav Ur 1.019 (1.001-1.035); Squamous Epithelial Cell Urine None seen /hpf (Few); WBC Urine 0-5 /hpf
[2023-04-13 14:44] LABS: Creatine Kinase 67 U/L (30-135)
[2023-04-13 15:03] LABS: Thyroid Stimulating Hormone 0.189 uIU/mL (0.465-4.680)
[2023-04-13 15:06] LABS: Add Urine Microscopic? YES
[2023-04-13] MEDS: ALBUTEROL SULFATE NEB 2.5 MG/3 ML INH INHALATION (15:50)
[2023-04-13] MEDS: IPRATROPIUM BR 0.02% INH SOLN 0.5 MG/2.5 ML VIAL INHALATION (15:50)
[2023-04-13] MEDS: methylPREDNISolone SOD SUCC 125 MG VIAL IV PUSH (15:52)
[2023-04-13 17:02] LABS: Influenza A QL RT-PCR Negative (Negative); Influenza B QL RT-PCR Negative (Negative); RSV RNA, RT-PCR Negative (Negative); SARS-CoV-2 RNA PCR Negative (Negative)
[2023-04-13 17:22] LABS: Amphetamine Screen Urine Negative (Negative); Barbiturate Screen Urine Negative (Negative); Benzodiazepines Screen Urine Positive (Negative); Cannabinoid Screen Urine Negative (Negative); Cocaine Screen Urine Negative (Negative); Methadone Screen Urine Negative (Negative); Opiate Screen Urine Negative (Negative); Phencyclidine Screen Urine Negative (Negative)
--- NOTE | 2023-04-13 17:52 | PC.NURSE ---
Daughter Padma Montenegro would like to be updated regarding pt status and POC.
[2023-04-13 18:21] LABS: NT Pro B Type Natriuretic Pept 1820 pg/mL (19.9-100)
--- NOTE | 2023-04-13 20:18 | PM.IMHP ---
H&P: HPI History of Present Illness Date/Time: 04/13/23 20:18 Chief Complaint: AMS Narrative: THIS IS A 72-YEAR-OLD FEMALE WITH PAST MEDICAL HISTORY SIGNIFICANT FOR DEMENTIA, INSULIN-DEPENDENT DIABETES MELLITUS, BIPOLAR DISORDER, ANXIETY, CHRONIC KIDNEY DISEASE CHRONIC OBSTRUCTIVE PULMONARY DISEASE GASTROESOPHAGEAL REFLUX DISEASE SEIZURE DISORDER PAIN PATIENT RESIDES AT INTERMEDIATE. WAS BROUGHT TO THE EMERGENCY ROOM DUE TO ALTERED MENTAL STATUS WITH LETHARGY AND LOW PULSE OX PATIENT IS UNABLE TO GIVE ANY MEANINGFUL HISTORY AT THE TIME OF MY VISIT SHE IS ON SUPPLEMENTAL OXYGEN BY NASAL CANNULA. EXAMINATION: XR chest 1V portable DATE: 04/13/2023 12:56 INDICATION: Weakness and lethargy. TECHNIQUE: A single frontal view of the chest was obtained. COMPARISON: Chest single view 09/29/2021 FINDINGS: There is mild atelectasis in left mid and lower lung zones. Calcified mediastinal lymph nodes are consistent with old granulomatous disease. Cardiomegaly is noted. There is a prominent left paracardial fat pad. IMPRESSION: 1. Mild atelectasis in left mid and lower lung zones. 2. Cardiomegaly. EXAMINATION: CT brain wo con DATE: 04/13/2023 13:49 INDICATION: Confusion. Lethargy, weakness TECHNIQUE: Computed tomography (CT) of the head was performed without intravenous contrast. The mA was adjusted according to patient size. Iterative reconstruction technique was employed. Exam dose:? 605.33 mGy-cm total exam DLP.? COMPARISON: 02/03/2022 CT Brain. FINDINGS: There are prominent bilateral vertebral artery calcifications in addition to bilateral carotid siphon internal carotid artery calcifications. There is nonspecific diminished attenuation of the cerebral white matter, likely due to chronic small vessel ischemic changes. No intracranial mass lesion or hemorrhage or cerebrovascular accidents, midline shift or mass effect.? No subdural or epidural hematoma.? ?Mild left frontal, prominent bilateral ethmoid and maxillary and moderate bilateral sphenoid soft tissue thickening. Partial right mastoid air cell effusions. IMPRESSION:? Cerebral atherosclerosis and chronic ischemic changes of the cerebral white matter No acute intracranial finding Prominent paranasal sinus disease EXAMINATION: CTA chest PE protocol DATE: 04/13/2023 15:50 INDICATION: Hypoxia TECHNIQUE: Computed tomography (CT) pulmonary angiogram of the chest was performed with 100 mL Omnipaque-350 intravenous contrast. Additional 3D reconstructions utilizing coronal maximum intensity projection (MIP) were performed. Automated exposure control and iterative reconstruction technique were employed. The dose-length product was 649.23 mGy-cm. COMPARISON: 09/29/2021 FINDINGS: Excellent contrast opacification of the pulmonary arteries. There is mild respiratory motion artifact which does not significantly limit evaluation. There is enlargement of the central pulmonary arteries consistent with pulmonary arterial hypertension but no filling defects to suggest pulmonary emboli. Similar pattern of atelectasis at the anterior and posterior left lower lobe. Minimal dependent atelectasis in the posterior right lower lobe. No pneumonia, pulmonary edema or pleural effusion. Cardiomegaly with right atrial and ventricular enlargement. No pericardial effusion. Thoracic aorta is normal in caliber with no dissection. Calcified mediastinal lymph nodes consistent with old granulomatous disease. Multinodular goiter with at least 4 cm nodules in the right thyroid lobe which extends minimal distance into the superior mediastinum. No pathologically enlarged thoracic lymphadenopathy. No significant change in a 3.8 cm low-attenuation right adrenal adenoma. Mild S-shaped curvature of the thoracic spine with mild spondylosis. IMPRESSION: 1. No pulmonary embolism. 2. Cardiomegaly with right atrial and ventricular enlargement and enlargement of the central pulmonary arteries consistent with pulmonary arterial
--- NOTE | 2023-04-13 20:20 | ADMGEN ---
This patient, Keila Cowart, was admitted to Medical Room 256-. Patient/family oriented to hospital policies and general routines including ID bracelet, bed and alarms, visiting hours, pain management, procedures, bathroom and other care routines, personal items, smoking policy, room service/diet, and visiting hours. Information on how to activate the Rapid Response Team has been discussed. Patient/Family are encouraged to report perceived risks to care and to ask questions if they do not understand what they are told or what they should do.
[2023-04-13] MEDS: methylPREDNISolone SOD SUCC 40 MG VIAL IV PUSH (22:14)
[2023-04-13 22:21] LABS: Glucose Point of Care 241 mg/dl (65-105)
--- NOTE | 2023-04-13 23:35 | PCRCNOTE ---
Window of time for administration has passed. See next scheduled administration.
[2023-04-14] VITALS (17 sets, daily range): BP systolic 110–138; BP diastolic 58–88; PULSE 78–98; RESP 14–20; TEMP 36.4–36.8; O2SAT 92–97
[2023-04-14] MEDS: ALBUTEROL SULFATE NEB 2.5 MG/3 ML INH INHALATION ×4 (02:18→21:07)
[2023-04-14] MEDS: IPRATROPIUM BR 0.02% INH SOLN 0.5 MG/2.5 ML VIAL INHALATION ×4 (02:19→21:07)
[2023-04-14] MEDS: methylPREDNISolone SOD SUCC 40 MG VIAL IV PUSH (05:22)
[2023-04-14] MEDS: ACETAMINOPHEN 500 MG TABLET PO ×3 (08:12→16:59)
[2023-04-14] MEDS: calcium polycarbophiL 625 MG TABLET 1250 MG PO (08:12)
[2023-04-14] MEDS: lamoTRIgine 50 MG TABLET PO (08:13)
[2023-04-14] MEDS: lamoTRIgine 100 MG TABLET 200 MG PO (08:13)
[2023-04-14] MEDS: MEMANTINE 10 MG TABLET PO ×2 (08:13→20:05)
[2023-04-14] MEDS: DOCUSATE SODIUM 100 MG CAPSULE PO ×2 (08:14→20:05)
[2023-04-14] MEDS: ESCITALOPRAM OXALATE 10 MG TABLET 20 MG PO (08:14)
[2023-04-14] MEDS: LITHIUM CARBONATE 150 MG CAPSULE PO ×2 (08:14→16:59)
[2023-04-14] MEDS: APIXABAN 5 MG TABLET PO ×2 (08:14→20:05)
[2023-04-14] MEDS: ASPIRIN 81 MG ENTERIC TABLET PO (08:14)
[2023-04-14 08:37] LABS: Glucose Point of Care 313 mg/dl (65-105)
[2023-04-14] MEDS: INSULIN ASPART (*BKC) 100 UNITS/ML SUB-Q ×3 (08:37→16:59)
[2023-04-14 12:09] LABS: Glucose Point of Care 499 mg/dl (65-105)
[2023-04-14 12:09] LABS: Glucose Point of Care > 500 mg/dl (65-105)
--- NOTE | 2023-04-14 12:13 | PM.IMPN ---
Progress Note: A&P Assessment and Plan (1) COPD exacerbation: Code(s): J44.1 - Chronic obstructive pulmonary disease with (acute) exacerbation Status: Acute Assessment and Plan: Clinically improving 04/14 switched to p.o. steroids and continue bronchodilators (2) Acute respiratory failure with hypoxia and hypercapnia: Code(s): J96.01 - Acute respiratory failure with hypoxia; J96.02 - Acute respiratory failure with hypercapnia Status: Acute Assessment and Plan: Wean oxygen as tolerated (3) Insulin dependent diabetes mellitus: Status: Acute Assessment and Plan: 04/14/2023 blood sugar 508 by bedside monitor so increased basal insulin and switch sliding scale to high dose due to steroids Monitor sugars and decrease insulin as steroids are tapered (4) Chronic kidney disease, stage 3: Code(s): N18.30 - Chronic kidney disease, stage 3 unspecified Status: Acute Assessment and Plan: Creatinine within normal limits 04/13/2023 (5) Dementia: Code(s): F03.90 - Unspecified dementia, unspecified severity, without behavioral disturbance, psychotic disturbance, mood disturbance, and anxiety Status: Acute Assessment and Plan: Clinically stable (6) Gastroesophageal reflux disease: Code(s): K21.9 - Gastro-esophageal reflux disease without esophagitis Status: Acute Assessment and Plan: Continue medication Subjective Date/time seen: 04/14/23 12:13 Interval history: No complaints voiced today. Tolerating diet. Eating quite well. Confused and unable to provide more extensive history. Remainder of history is obtained from reviewing the chart. Review of Systems Review of Systems: ROS unobtainable: Yes unobtainable due to medical condition Exam Narrative: HEENT: PERRL, sclerae nonicteric, pharyngeal mucosa pink and intact NECK: No JVD, adenopathy, or thyromegaly CHEST: Coarse breath sounds with normal effort. HEART: NL S1/S2, regular, no murmur ABDOMEN: BS+, soft, nontender, no mass, no bruits EXTREMITIES: No cyanosis, edema, or clubbing NEUROLOGIC: CN intact and symmetric to inspection. MUSCULOSKELETAL: Tone and strength symmetric. PSYCH: Alert. Oriented to person only. Objective Data Vital Signs Vital Signs: Vital Signs - 24 hr 04/13/23 12:45 04/13/23 13:11 04/13/23 14:35 Temperature Pulse Rate 87 90 86 Respiratory Rate 12 17 18 Blood Pressure 125/74 119/69 106/74 Pulse Oximetry 100 95 97 Oxygen Delivery Oxygen Flow Rate Fraction of Inspired Oxygen 04/13/23 15:37 04/13/23 15:53 04/13/23 15:50 Temperature Pulse Rate 87 84 84 Respiratory Rate 17 16 18 Blood Pressure 101/88 111/65 Pulse Oximetry 98 98 Oxygen Delivery Oxygen Flow Rate Fraction of Inspired Oxygen 04/13/23 15:58 04/13/23 18:19 04/13/23 19:15 Temperature Pulse Rate 85 88 91 Respiratory Rate 18 20 20 Blood Pressure 125/75 123/62 Pulse Oximetry 95 94 Oxygen Delivery Oxygen Flow Rate Fraction of Inspired Oxygen 04/13/23 20:31 04/13/23 22:12 04/14/23 00:00 Temperature 98.0 F Pulse Rate 88 98 Respiratory Rate 16 16 Blood Pressure 115/85 Pulse Oximetry 94 94 Oxygen Delivery Nasal Cannula Oxygen Flow Rate 2 Fraction of Inspired Oxygen 04/14/23 02:19 04/13/23 23:20 04/14/23 02:28 Temperature Pulse Rate 89 96 86 Respiratory Rate 20 18 Blood Pressure Pulse Oximetry 92 Oxygen Delivery Nasal Cannula Oxygen Flow Rate 2 Fraction of Inspired Oxygen 28 04/14/23 04:23 04/14/23 04:00 04/14/23 07:21 Temperature 98.2 F Pulse Rate 83 82 80 Respiratory Rate 14 18 Blood Pressure 138/66 Pulse Oximetry 92 Oxygen Delivery Oxygen Flow Rate Fraction of Inspired Oxygen 04/14/23 07:22 04/14/23 08:00 04/14/23 08:00 Temperature Pulse Rate 96 91 Respiratory Rate Blood Pressure Pulse Oximetry 94 94 Oxygen Delivery Nasal Jaspreet
[2023-04-14] MEDS: INSULIN ASPART (*BKC) 100 UNITS/ML 10 UNITS SUB-Q (12:23)
[2023-04-14 16:55] LABS: Glucose Point of Care 206 mg/dl (65-105)
[2023-04-14] MEDS: DONEPEZIL HCL 10 MG TABLET PO (20:05)
[2023-04-14] MEDS: traZODone HCL 50 MG TABLET 150 MG PO (20:05)
[2023-04-14] MEDS: INSULIN GLARGINE (*BKC) 100 UNITS/ML 40 UNITS SUB-Q (20:10)
[2023-04-14 20:53] LABS: Glucose Point of Care 197 mg/dl (65-105)
[2023-04-15] VITALS (8 sets, daily range): BP systolic 118–135; BP diastolic 68–79; PULSE 76–91; RESP 16–18; TEMP 36.3–36.9; O2SAT 95–100
[2023-04-15 05:34] LABS: Hematocrit 38.8 % (37.0-47.0); Hemoglobin 11.9 g/dL (12.0-15.0); Mean Corpuscular HGB Conc 30.7 g/dl (32-36); Mean Corpuscular Hemoglobin 31.1 pg (26-34); Mean Corpuscular Volume 101.3 fl (80-100); Mean Platelet Volume 10.6 fl (7.4-10.4); Platelet Count Result 219 k/mm3 (150-375); Red Blood Count 3.83 M/mm3 (4.2-5.4); Red Cell Distribution Width 12.5 % (11.5-14.5); White Blood Count 8.9 K/mm3 (4.5-10.0)
[2023-04-15 05:53] LABS: Anion Gap 4 mmol/L (8-16); Blood Urea Nitrogen 30 mg/dL (7-17); Calcium 9.3 mg/dL (8.4-10.2); Carbon Dioxide 31 mmol/L (22-30); Chloride 105 mmol/L (98-107); Estimated Glomerular Filt Rate > 60; Glucose 132 mg/dL (65-110); Potassium 3.9 mmol/L (3.4-5.0); Sodium 140 mmol/L (137-145)
[2023-04-15 06:57] LABS: Folic Acid 15.2 ng/mL (2.76->20)
[2023-04-15 08:38] LABS: Glucose Point of Care 139 mg/dl (65-105)
[2023-04-15] MEDS: lamoTRIgine 50 MG TABLET PO (08:57)
[2023-04-15] MEDS: predniSONE 20 MG TABLET 40 MG PO (08:57)
[2023-04-15] MEDS: ACETAMINOPHEN 500 MG TABLET PO ×3 (08:57→16:49)
[2023-04-15] MEDS: calcium polycarbophiL 625 MG TABLET 1250 MG PO (08:57)
[2023-04-15] MEDS: DOCUSATE SODIUM 100 MG CAPSULE PO ×2 (08:58→20:47)
[2023-04-15] MEDS: APIXABAN 5 MG TABLET PO ×2 (08:58→20:47)
[2023-04-15] MEDS: ASPIRIN 81 MG ENTERIC TABLET PO (08:58)
[2023-04-15] MEDS: LITHIUM CARBONATE 150 MG CAPSULE PO ×2 (08:58→16:51)
[2023-04-15] MEDS: ESCITALOPRAM OXALATE 10 MG TABLET 20 MG PO (08:58)
[2023-04-15] MEDS: lamoTRIgine 100 MG TABLET 200 MG PO (08:58)
[2023-04-15] MEDS: MEMANTINE 10 MG TABLET PO ×2 (08:58→20:47)
--- NOTE | 2023-04-15 09:10 | PCRCNOTE ---
RT entered room to give 0800 breathing tx, family at bedside, attempted to wake pt up for breathing treatment but attempt was unsuccessful, family and nurse says this is normal cause she gets sleepy medications at night time. RN informed, will attempt breathing treatment earlier in the afternoon when patient is more awake.
--- NOTE | 2023-04-15 09:18 | PM.IMPN ---
Progress Note: A&P Assessment and Plan (1) COPD exacerbation: Code(s): J44.1 - Chronic obstructive pulmonary disease with (acute) exacerbation Status: Acute Assessment and Plan: Clinically improving 04/14 switched to p.o. steroids and continue bronchodilators 04/15 clinically stable for discharge after she eats breakfast and takes her morning medicines (2) Acute respiratory failure with hypoxia and hypercapnia: Code(s): J96.01 - Acute respiratory failure with hypoxia; J96.02 - Acute respiratory failure with hypercapnia Status: Acute Assessment and Plan: Wears oxygen at 1 liter/minute at [facility] 04/15 currently on 2 liters/minute Wean as possible (3) Insulin dependent diabetes mellitus: Status: Acute Assessment and Plan: 04/14/2023 blood sugar 508 by bedside monitor so increased basal insulin and switch sliding scale to high dose due to steroids 04/15 FBS 132 Monitor sugars and decrease insulin as steroids are tapered (4) Chronic kidney disease, stage 3: Code(s): N18.30 - Chronic kidney disease, stage 3 unspecified Status: Acute Assessment and Plan: Creatinine within normal limits 04/15/2023 (5) Dementia: Code(s): F03.90 - Unspecified dementia, unspecified severity, without behavioral disturbance, psychotic disturbance, mood disturbance, and anxiety Status: Acute Assessment and Plan: Clinically stable (6) Gastroesophageal reflux disease: Code(s): K21.9 - Gastro-esophageal reflux disease without esophagitis Status: Acute Assessment and Plan: Continue medication Subjective Date/time seen: 04/15/23 09:18 Interval history: Patient very drowsy this morning but son at bedside said this is her normal state in the morning. She usually wakes up mid to late morning and has a late breakfast and takes her morning meds late. According to staff she had a quiet night. Review of Systems Review of Systems: ROS unobtainable: Yes unobtainable due to mental status Exam Narrative: HEENT: PERRL, sclerae nonicteric, pharyngeal mucosa pink and intact NECK: No JVD, adenopathy, or thyromegaly CHEST: Coarse breath sounds with normal effort. HEART: NL S1/S2, regular, no murmur ABDOMEN: BS+, soft, nontender, no mass, no bruits EXTREMITIES: No cyanosis, edema, or clubbing NEUROLOGIC: CN intact and symmetric to inspection. MUSCULOSKELETAL: Tone and strength symmetric. PSYCH: Alert. Oriented to person only. Objective Data Vital Signs Vital Signs: Vital Signs - 24 hr 04/14/23 11:48 04/14/23 13:25 04/14/23 15:03 Temperature 97.6 F 97.7 F Pulse Rate 86 82 88 Respiratory Rate 16 18 16 Blood Pressure 122/65 115/58 L Pulse Oximetry 97 96 Oxygen Delivery Oxygen Flow Rate Fraction of Inspired Oxygen 04/14/23 16:36 04/14/23 20:00 04/14/23 21:07 Temperature 98.2 F Pulse Rate 86 86 78 Respiratory Rate 16 16 18 Blood Pressure 110/88 Pulse Oximetry 96 96 Oxygen Delivery Nasal Cannula Oxygen Flow Rate 2 Fraction of Inspired Oxygen 28 04/14/23 21:09 04/14/23 21:20 04/14/23 21:35 Temperature 97.6 F Pulse Rate 80 82 Respiratory Rate 18 18 Blood Pressure 111/67 Pulse Oximetry 95 95 Oxygen Delivery Nasal Cannula Oxygen Flow Rate 2 Fraction of Inspired Oxygen 04/15/23 06:00 Temperature 97.4 F L Pulse Rate 76 Respiratory Rate 18 Blood Pressure 118/68 Pulse Oximetry 95 Oxygen Delivery Oxygen Flow Rate Fraction of Inspired Oxygen Intake/Output Intake/Output: Intake & Output 04/12/23 04/13/23 04/14/23 04/15/23 23:59 23:59 23:59 22:59 Intake Total 1000 1680 550 Output Total 50 100 Balance 950 1580 550 Meds/Results Medications: Active Medications Generic Name Dose Route Start Last Admin Trade Name Freq PRN Reason Stop Dose Admin Acetaminophen 500 mg 04/14/23 03:47 Acetaminophen 500 Mg Tablet PO Q4H PRN pain/fever
[2023-04-15 11:53] LABS: Glucose Point of Care 301 mg/dl (65-105)
[2023-04-15] MEDS: INSULIN ASPART (*BKC) 100 UNITS/ML SUB-Q ×2 (12:18→16:51)
[2023-04-15] MEDS: polyethylene glycoL 3350 17 GM POWD.PACK PO (16:51)
[2023-04-15 17:04] LABS: Glucose Point of Care 279 mg/dl (65-105)
[2023-04-15] MEDS: IPRATROPIUM BR 0.02% INH SOLN 0.5 MG/2.5 ML VIAL INHALATION (20:18)
[2023-04-15] MEDS: ALBUTEROL SULFATE NEB 2.5 MG/3 ML INH INHALATION (20:18)
[2023-04-15] MEDS: DONEPEZIL HCL 10 MG TABLET PO (20:47)
[2023-04-15] MEDS: traZODone HCL 50 MG TABLET 150 MG PO (20:47)
[2023-04-15] MEDS: INSULIN GLARGINE (*BKC) 100 UNITS/ML 40 UNITS SUB-Q (20:48)
[2023-04-15 21:04] LABS: Glucose Point of Care 259 mg/dl (65-105)
[2023-04-16] VITALS (11 sets, daily range): BP systolic 113–122; BP diastolic 56–65; PULSE 69–86; RESP 16–18; TEMP 36.4–36.7; O2SAT 95–100
[2023-04-16] MEDS: ALBUTEROL SULFATE NEB 2.5 MG/3 ML INH INHALATION ×3 (02:35→20:45)
[2023-04-16] MEDS: IPRATROPIUM BR 0.02% INH SOLN 0.5 MG/2.5 ML VIAL INHALATION ×3 (02:35→20:45)
[2023-04-16 08:18] LABS: Glucose Point of Care 118 mg/dl (65-105)
--- NOTE | 2023-04-16 08:20 | PM.IMPN ---
Progress Note: A&P Assessment and Plan (1) COPD exacerbation: Code(s): J44.1 - Chronic obstructive pulmonary disease with (acute) exacerbation Status: Acute Assessment and Plan: Clinically improving on 04/14 switched to p.o. steroids and continue bronchodilators patient condition is improving, still has some shortness breath (2) Acute respiratory failure with hypoxia and hypercapnia: Code(s): J96.01 - Acute respiratory failure with hypoxia; J96.02 - Acute respiratory failure with hypercapnia Status: Acute Assessment and Plan: Wears oxygen at 1 liter/minute at [facility] 04/15 currently on 2 liters/minute Wean as possible (3) Insulin dependent diabetes mellitus: Status: Acute Assessment and Plan: 04/14/2023 blood sugar 508 by bedside monitor so increased basal insulin and switch sliding scale to high dose due to steroids 04/15 FBS 132 Monitor sugars and decrease insulin as steroids are tapered (4) Chronic kidney disease, stage 3: Code(s): N18.30 - Chronic kidney disease, stage 3 unspecified Status: Acute Assessment and Plan: Creatinine within normal limits 04/15/2023 (5) Dementia: Code(s): F03.90 - Unspecified dementia, unspecified severity, without behavioral disturbance, psychotic disturbance, mood disturbance, and anxiety Status: Acute Assessment and Plan: Clinically stable (6) Gastroesophageal reflux disease: Code(s): K21.9 - Gastro-esophageal reflux disease without esophagitis Status: Acute Assessment and Plan: Continue medication Plan Plan discharge patient tomorrow to [facility] Subjective Date/time seen: 04/16/23 08:20 Interval history: I saw exam patient today, patient still has cough, shortness breath is improving, patient has no new issue events overnight, patient has a general weakness. Exam Narrative: HEENT: PERRL, sclerae nonicteric, pharyngeal mucosa pink and intact NECK: No JVD, adenopathy, or thyromegaly CHEST: Coarse breath sounds with normal effort. HEART: NL S1/S2, regular, no murmur ABDOMEN: BS+, soft, nontender, no mass, no bruits EXTREMITIES: No cyanosis, edema, or clubbing NEUROLOGIC: CN intact and symmetric to inspection. MUSCULOSKELETAL: Tone and strength symmetric. PSYCH: Alert. Oriented to person only. Objective Data Vital Signs Vital Signs: Vital Signs - 24 hr 04/15/23 15:22 11/05/23 15:31 04/15/23 19:25 Temperature 98.5 F 97.8 F Pulse Rate 91 84 Respiratory Rate 16 18 Blood Pressure 135/79 130/69 Pulse Oximetry 98 99 100 Oxygen Delivery Nasal Cannula Oxygen Flow Rate 2 04/15/23 20:21 04/15/23 20:23 04/15/23 20:27 Temperature Pulse Rate 82 82 Respiratory Rate 18 18 Blood Pressure Pulse Oximetry 96 Oxygen Delivery Nasal Cannula Oxygen Flow Rate 2 04/16/23 02:35 04/16/23 02:41 04/16/23 05:52 Temperature 97.6 F Pulse Rate 71 69 77 Respiratory Rate 18 18 18 Blood Pressure 113/56 L Pulse Oximetry 100 Oxygen Delivery Oxygen Flow Rate Intake/Output Intake/Output: Intake & Output 04/14/23 04/15/23 04/15/23 04/16/23 00:59 00:59 23:59 23:59 Intake Total Output Total Balance Meds/Results Medications: Active Medications Generic Name Dose Route Start Last Admin Trade Name Gennaro PRN Reason Stop Dose Admin Acetaminophen 500 mg 04/14/23 03:47 Acetaminophen 500 Mg Tablet PO Q4H PRN pain/fever Acetaminophen 500 mg 04/14/23 09:00 04/15/23 16:49 Acetaminophen 500 Mg Tablet PO 500 mg TID ARNIE Administration Albuterol 2.5 mg 04/13/23 20:00 04/16/23 02:35 Albuterol Sulfate Neb 2.5 Mg/3 Ml Inh INHALATION 2.5 mg Q6HRT ARNIE Administration Apixaban 5 mg 04/14/23 09:00 04/15/23 20:47 Apixaban 5 Mg Tablet PO 5 mg Q12HR ARNIE Administration Aspirin 81 mg 04/14/23 09:00 04/15/23 08:58 Aspirin 81 Mg Enteric Tablet PO 81 mg
[2023-04-16] MEDS: lamoTRIgine 100 MG TABLET 200 MG PO (09:28)
[2023-04-16] MEDS: APIXABAN 5 MG TABLET PO ×2 (09:28→20:27)
[2023-04-16] MEDS: DOCUSATE SODIUM 100 MG CAPSULE PO ×2 (09:28→20:27)
[2023-04-16] MEDS: LITHIUM CARBONATE 150 MG CAPSULE PO ×2 (09:28→16:14)
[2023-04-16] MEDS: ESCITALOPRAM OXALATE 10 MG TABLET 20 MG PO (09:28)
[2023-04-16] MEDS: lamoTRIgine 50 MG TABLET PO (09:28)
[2023-04-16] MEDS: MEMANTINE 10 MG TABLET PO ×2 (09:29→20:27)
[2023-04-16] MEDS: predniSONE 20 MG TABLET 40 MG PO (09:29)
[2023-04-16] MEDS: calcium polycarbophiL 625 MG TABLET 1250 MG PO (09:29)
[2023-04-16] MEDS: ASPIRIN 81 MG ENTERIC TABLET PO (09:29)
[2023-04-16] MEDS: ACETAMINOPHEN 500 MG TABLET PO ×3 (09:30→16:14)
[2023-04-16] MEDS: polyethylene glycoL 3350 17 GM POWD.PACK PO ×2 (09:37→16:14)
[2023-04-16 11:17] LABS: Glucose Point of Care 176 mg/dl (65-105)
--- NOTE | 2023-04-16 15:19 | PC.NURSE ---
All care, medications and assessments performed by Bertha Lozano, Student Nurse/[facility] has been completed under direct supervision of [place] [employer] Technician or Nursing Staff. Charting has been reviewed and agree with same. Any questions or concerns presented by patient and/or family has been relayed to appropriate staff.
[2023-04-16 17:06] LABS: Glucose Point of Care 322 mg/dl (65-105)
[2023-04-16] MEDS: INSULIN ASPART (*BKC) 100 UNITS/ML SUB-Q (17:08)
[2023-04-16] MEDS: traZODone HCL 50 MG TABLET 150 MG PO (20:27)
[2023-04-16] MEDS: DONEPEZIL HCL 10 MG TABLET PO (20:27)
[2023-04-16] MEDS: INSULIN GLARGINE (*BKC) 100 UNITS/ML 40 UNITS SUB-Q (20:27)
[2023-04-16 20:54] LABS: Glucose Point of Care 186 mg/dl (65-105)
[2023-04-17] VITALS (8 sets, daily range): BP systolic 108–138; BP diastolic 63–67; PULSE 76–81; RESP 18–20; TEMP 36.4–36.8; O2SAT 95–100
[2023-04-17] MEDS: ALBUTEROL SULFATE NEB 2.5 MG/3 ML INH INHALATION ×3 (02:20→13:26)
[2023-04-17] MEDS: IPRATROPIUM BR 0.02% INH SOLN 0.5 MG/2.5 ML VIAL INHALATION ×3 (02:20→13:26)
[2023-04-17 08:20] LABS: Glucose Point of Care 145 mg/dl (65-105)
--- NOTE | 2023-04-17 08:29 | PM.IMPN ---
Progress Note: A&P Assessment and Plan (1) COPD exacerbation: Code(s): J44.1 - Chronic obstructive pulmonary disease with (acute) exacerbation Status: Acute Assessment and Plan: Clinically improving on 04/14 switched to p.o. steroids and continue bronchodilators patient condition is improving, patient has no shortness breast today (2) Acute respiratory failure with hypoxia and hypercapnia: Code(s): J96.01 - Acute respiratory failure with hypoxia; J96.02 - Acute respiratory failure with hypercapnia Status: Acute Assessment and Plan: Wears oxygen at 1 liter/minute at [facility] 04/15 currently on 2 liters/minute Weaned off oxygen (3) Insulin dependent diabetes mellitus: Status: Acute Assessment and Plan: 04/14/2023 blood sugar 508 by bedside monitor so increased basal insulin and switch sliding scale to high dose due to steroids 04/15 FBS 132 Monitor sugars and decrease insulin as steroids are tapered (4) Chronic kidney disease, stage 3: Code(s): N18.30 - Chronic kidney disease, stage 3 unspecified Status: Acute Assessment and Plan: Creatinine within normal limits since 04/15/2023 (5) Dementia: Code(s): F03.90 - Unspecified dementia, unspecified severity, without behavioral disturbance, psychotic disturbance, mood disturbance, and anxiety Status: Acute Assessment and Plan: Clinically stable (6) Gastroesophageal reflux disease: Code(s): K21.9 - Gastro-esophageal reflux disease without esophagitis Status: Acute Assessment and Plan: Continue medication Plan Plan discharge patient tomorrow to [facility] Subjective Date/time seen: 04/17/23 08:29 Interval history: Patient feels better today, dyspnea has resolved, denies chest pain, abdomen pain, nausea vomiting diarrhea Exam Narrative: HEENT: PERRL, sclerae nonicteric, pharyngeal mucosa pink and intact NECK: No JVD, adenopathy, or thyromegaly CHEST: Coarse breath sounds with normal effort. HEART: NL S1/S2, regular, no murmur ABDOMEN: BS+, soft, nontender, no mass, no bruits EXTREMITIES: No cyanosis, edema, or clubbing NEUROLOGIC: CN intact and symmetric to inspection. MUSCULOSKELETAL: Tone and strength symmetric. PSYCH: Alert. Oriented to person only. Objective Data Vital Signs Vital Signs: Vital Signs - 24 hr 04/16/23 08:56 04/16/23 09:04 04/16/23 09:40 Temperature 98.1 F Pulse Rate 86 Respiratory Rate 18 Blood Pressure 122/65 Pulse Oximetry 95 98 98 Oxygen Delivery Nasal Cannula Nasal Cannula Oxygen Flow Rate 2 2 Fraction of Inspired Oxygen 28 04/16/23 14:37 04/16/23 14:46 04/16/23 20:45 Temperature Pulse Rate 86 84 79 Respiratory Rate 16 16 18 Blood Pressure Pulse Oximetry Oxygen Delivery Oxygen Flow Rate Fraction of Inspired Oxygen 04/16/23 20:45 04/16/23 21:02 04/16/23 21:25 Temperature 98.0 F Pulse Rate 81 69 Respiratory Rate 18 18 Blood Pressure 113/61 Pulse Oximetry 95 96 Oxygen Delivery Nasal Cannula Oxygen Flow Rate 2 Fraction of Inspired Oxygen 28 04/17/23 05:15 04/17/23 02:20 04/17/23 02:30 Temperature 98.2 F Pulse Rate 81 80 78 Respiratory Rate 20 18 18 Blood Pressure 108/67 Pulse Oximetry 100 Oxygen Delivery Oxygen Flow Rate Fraction of Inspired Oxygen 04/17/23 08:15 04/17/23 08:15 Temperature Pulse Rate 81 Respiratory Rate 18 Blood Pressure Pulse Oximetry 96 Oxygen Delivery Nasal Cannula Oxygen Flow Rate 2 Fraction of Inspired Oxygen 28 Intake/Output Intake/Output: Intake & Output 04/15/23 04/15/23 04/16/23 04/17/23 00:59 23:59 23:59 23:59 Intake Total 2420 120 Output Total Balance 2420 120 Meds/Results Medications: Active Medications Generic Name Dose Route Start Last Admin Trade Name Freq PRN Reason Stop Dose Admin Acetaminophen 500 mg 04/14/23 03:47 Acetaminophe
--- NOTE | 2023-04-17 08:30 | PM.DS ---
DS: Admitting Diagnosis Discharge Date 04/17/23 Admitting Diagnosis COPD exacerbation Acute respiratory failure Uncontrolled type 2 diabetes DS: Discharge Diagnosis Discharge Diagnosis (1) COPD exacerbation: Code(s): J44.1 - Chronic obstructive pulmonary disease with (acute) exacerbation Status: Acute Assessment and Plan: (2) Acute respiratory failure with hypoxia and hypercapnia: Code(s): J96.01 - Acute respiratory failure with hypoxia; J96.02 - Acute respiratory failure with hypercapnia Status: Acute (3) Insulin dependent diabetes mellitus: Status: Acute Assessment and Plan: (4) Chronic kidney disease, stage 3: Code(s): N18.30 - Chronic kidney disease, stage 3 unspecified Status: Acute Assessment and Plan: Creatinine within normal limits since 04/15/2023 (5) Dementia: Code(s): F03.90 - Unspecified dementia, unspecified severity, without behavioral disturbance, psychotic disturbance, mood disturbance, and anxiety Status: Acute (6) Gastroesophageal reflux disease: Code(s): K21.9 - Gastro-esophageal reflux disease without esophagitis Status: Acute Plan Plan discharge patient tomorrow to custodial DS: Summary Hospital Course Hospital Course: Per H&P, tHIS IS A 72-YEAR-OLD FEMALE WITH PAST MEDICAL HISTORY SIGNIFICANT FOR DEMENTIA, INSULIN-DEPENDENT DIABETES MELLITUS, BIPOLAR DISORDER, ANXIETY, CHRONIC KIDNEY DISEASE CHRONIC OBSTRUCTIVE PULMONARY DISEASE GASTROESOPHAGEAL REFLUX DISEASE SEIZURE DISORDER PAIN PATIENT RESIDES AT [facility].? WAS BROUGHT TO THE EMERGENCY ROOM DUE TO ALTERED MENTAL STATUS WITH LETHARGY AND LOW PULSE OX PATIENT IS UNABLE TO GIVE ANY MEANINGFUL HISTORY AT THE TIME OF MY VISIT SHE IS ON SUPPLEMENTAL OXYGEN BY NASAL CANNULA. The following medical issues have been addressed during hospitalization (1) COPD exacerbation: ?Code(s): J44.1 - Chronic obstructive pulmonary disease with (acute) exacerbation ?Status:?Acute ?Assessment and Plan: Clinically improving on 04/14 switched to p.o. steroids and continue bronchodilators ?patient condition is improving, patient has no shortness breast today Patient will be discharged to home with Atrovent and albuterol nebulizer (2) Acute respiratory failure with hypoxia and hypercapnia: ?Code(s): J96.01 - Acute respiratory failure with hypoxia; J96.02 - Acute respiratory failure with hypercapnia ?Status:?Acute ?Assessment and Plan: Wears oxygen at 1 liter/minute at [facility] 04/15 currently on 2 liters/minute Weaned off oxygen at discharge (3) Insulin dependent diabetes mellitus: ?Status:?Acute ?Assessment and Plan: 04/14/2023 blood sugar 508 by bedside monitor so increased basal insulin and switch sliding scale to high dose due to steroids 04/15 FBS 132 On discharge, continue Lantus 30 night q.h.s. and add sliding scale Patient need to see primary care doctor in 1 week to address dose of medications (4) Chronic kidney disease, stage 3: ?Code(s): N18.30 - Chronic kidney disease, stage 3 unspecified ?Status:?Acute ?Assessment and Plan: Creatinine within normal limits since 04/15/2023 (5) Dementia: ?Code(s): F03.90 - Unspecified dementia, unspecified severity, without behavioral disturbance, psychotic disturbance, mood disturbance, and anxiety ?Status:?Acute ?Assessment and Plan: Clinically stable(6) Gastroesophageal reflux disease: ?Code(s): K21.9 - Gastro-esophageal reflux disease without esophagitis ?Status:?Acute ?Assessment and Plan: Continue medication Hospital course uneventful, patient will be discharged custodial Time Spent with Patient Time attestation: Total time spent providing and/or coordinating discharge services: Exam Narrative: HEENT: PERRL, sclerae nonicteric, pharyngeal mucosa pink and intact NECK: No JVD, a
[2023-04-17 09:01] LABS: Basophils Percent Auto 0.4 % (0.2-1.2); Eosinophils Absolute Auto 0.1 K/mm3 (0-0.3); Eosinophils Percent Auto 1.8 % (0-4.4); Hematocrit 42.8 % (37.0-47.0); Hemoglobin 13.3 g/dL (12.0-15.0); Immature Granulocyte Absolute 0.06 K/mm3 (0.00-0.031); Immature Granulocyte Percent A 0.8 % (0-0.5); Lymphocytes Absolute Auto 1.25 K/mm3 (0.9-3.2); Lymphocytes Percent Auto 16.2 % (18.3-44.2); Mean Corpuscular HGB Conc 31.1 g/dl (32-36); Mean Corpuscular Hemoglobin 31.1 pg (26-34); Mean Platelet Volume 10.2 fl (7.4-10.4); Monocytes Absolute Auto 0.6 K/mm3 (0.1-0.6); Monocytes Percent Auto 7.3 % (2.6-8.5); Neutrophils Absolute Auto 5.7 K/mm3 (1.3-6.7); Neutrophils Percent Auto 73.5 % (45.5-73.1); Platelet Count Result 224 k/mm3 (150-375); Red Blood Count 4.28 M/mm3 (4.2-5.4); Red Cell Distribution Width 12.3 % (11.5-14.5); White Blood Count 7.7 K/mm3 (4.5-10.0)
[2023-04-17 09:15] LABS: Anion Gap 4 mmol/L (8-16); Blood Urea Nitrogen 20 mg/dL (7-17); Calcium 9.3 mg/dL (8.4-10.2); Carbon Dioxide 32 mmol/L (22-30); Chloride 105 mmol/L (98-107); Estimated Glomerular Filt Rate > 60; Glucose 131 mg/dL (65-110); Sodium 141 mmol/L (137-145)
[2023-04-17] MEDS: calcium polycarbophiL 625 MG TABLET 1250 MG PO (09:37)
[2023-04-17] MEDS: ESCITALOPRAM OXALATE 10 MG TABLET 20 MG PO (09:37)
[2023-04-17] MEDS: lamoTRIgine 100 MG TABLET 200 MG PO (09:37)
[2023-04-17] MEDS: ASPIRIN 81 MG ENTERIC TABLET PO (09:38)
[2023-04-17] MEDS: DOCUSATE SODIUM 100 MG CAPSULE PO (09:38)
[2023-04-17] MEDS: lamoTRIgine 50 MG TABLET PO (09:38)
[2023-04-17] MEDS: predniSONE 20 MG TABLET 40 MG PO (09:38)
[2023-04-17] MEDS: MEMANTINE 10 MG TABLET PO (09:38)
[2023-04-17] MEDS: polyethylene glycoL 3350 17 GM POWD.PACK PO (09:39)
[2023-04-17] MEDS: LITHIUM CARBONATE 150 MG CAPSULE PO ×2 (09:39→16:53)
[2023-04-17] MEDS: APIXABAN 5 MG TABLET PO (09:39)
[2023-04-17] MEDS: ACETAMINOPHEN 500 MG TABLET PO ×3 (09:39→16:53)
[2023-04-17 12:10] LABS: Glucose Point of Care 288 mg/dl (65-105)
[2023-04-17] MEDS: INSULIN ASPART (*BKC) 100 UNITS/ML SUB-Q (12:26)
[2023-04-17 13:12] LABS: SARS-CoV-2 RNA PCR Negative (Negative)
[2023-04-17 17:17] LABS: Glucose Point of Care 193 mg/dl (65-105)
== END 2023-04-17 17:50 | DRG 190 ==
LOC: ANHED 15:52 → ANH2MED 19:36
PROVIDERS: Internal Medicine; Admitting Provider Student in an Organized Health Care Education/Training Program; Emergency Provider Emergency Medicine; PCP Internal Medicine; Visit Provider Hospitalist
DX: J44.1 Chronic obstructive pulmonary disease with (acute) exacerbation (principal); J96.01 Acute respiratory failure with hypoxia; J96.02 Acute respiratory failure with hypercapnia; N18.30 Chronic kidney disease, stage 3 unspecified; E11.65 Type 2 diabetes mellitus with hyperglycemia; E11.22 Type 2 diabetes mellitus with diabetic chronic kidney disease; F03.90 Unspecified dementia, unspecified severity, without behavioral disturbance, psychotic disturbance, mood disturbance, and anxiety; F41.9 Anxiety disorder, unspecified; F31.9 Bipolar disorder, unspecified; G40.909 Epilepsy, unspecified, not intractable, without status epilepticus; I27.21 Secondary pulmonary arterial hypertension; K21.9 Gastro-esophageal reflux disease without esophagitis; R41.82 Altered mental status, unspecified; Z87.891 Personal history of nicotine dependence; Z79.4 Long term (current) use of insulin; Z66 Do not resuscitate; Z79.84 Long term (current) use of oral hypoglycemic drugs; Z11.52 Encounter for screening for COVID-19
CPT/HCPCS: 36415; 36600; 70450; 71045; 71275; 80048; 80053; 80307; 81001; 82140; 82550; 82607; 82746; 82805; 82948; 83605; 83880; 84443; 85025; 85027; 85610; 87040; 87635; 87637; 93005; 94640; 96361; 96374; 99285; A9270; J1815; J2920; J2930; J7030; J7512; Q9967